=== PATIENT | female | born 1940 | race Caucasian/White ===

== ENCOUNTER → 2016-08-18 | Outpatient (CLI) | payer MEDICARE ==
--- NOTE | 2016-08-18 12:12 | XR ---
EXAMINATION TYPE: XR KUB DATE OF EXAM: 08/18/2016 HISTORY: HX of kidney stones. RT side pain. Comparison: 05/09/2014 Single KUB is submitted for interpretation. Findings: Right renal calculi: None Visualized. Right ureteral calculi: There is an apparent calculus overlying the region of the right renal pelvis/ UPJ measuring 7.4 x 9.3 mm. The examination is limited by overlying bowel content. Left renal calculi: Calculi overlying the lower pole of the left kidney are difficult to exclude giv en overlying bowel content. Left ureteral calculi: None Visualized. Pelvic calcifications: Numerous stable phleboliths are seen. Bowel gas pattern is unremarkable. No free air. No mass effects. IMPRESSION: 1. Right renal pelvis/UPJ calculus. 2. Suspect calculi overlying the lower pole of the left kidney.
== END ==
LOC: RADXRMAIN 11:44
PROVIDERS: ATTEND Urology
DX: N20.0 Calculus of kidney (principal)
CPT/HCPCS: 74000

== ENCOUNTER → 2016-09-01 | Outpatient (CLI) | payer MEDICARE ==
[2016-09-01 11:28] LABS: EKG EKG PERFORMED
[2016-09-01 12:06] LABS: Anion Gap 9 mmol/L; Carbon Dioxide 28 mmol/L (22-30); Chloride 109 mmol/L (98-107); Non-African American GFR(MDRD) >60 (>60 ml/min/1.73 sqM); Potassium 3.8 mmol/L (3.5-5.1); Sodium 146 mmol/L (137-145)
[2016-09-01 12:11] LABS: Basophils % (A) 1 %; CH 30.1; CHCM 33.3; Eosinophils # (A) 0.1 k/uL (0-0.7); Eosinophils % (A) 2 %; HCT 38.8 % (34.0-46.0); HGB 13.1 gm/dL (11.4-16.0); Luc # (Auto) 0.16; Luc % (Auto) 3; Lymphocytes # (A) 1.2 k/uL (1.0-4.8); Lymphocytes % (A) 19 %; MCH 30.7 pg (25.0-35.0); MCHC 33.9 g/dL (31.0-37.0); MCV 90.7 fL (80.0-100.0); Monocytes # (A) 0.5 k/uL (0-1.0); Monocytes % (A) 8 %; Neutrophils # (A) 4.1 k/uL (1.3-7.7); Neutrophils % (A) 69 %; RBC 4.27 m/uL (3.80-5.40); RDW 12.9 % (11.5-15.5); WBC 5.9 k/uL (3.8-10.6); WBC (Perox) 6.06
== END | disposition home or self-care (01) ==
LOC: LABWHC1 11:01
PROVIDERS: ATTEND Urology
DX: N20.0 Calculus of kidney (principal)
CPT/HCPCS: 36415; 80051; 82565; 85025; 93005

== ENCOUNTER → 2016-10-06 | Outpatient (CLI) | payer MEDICARE ==
[2016-10-06 11:29] LABS: Basophils % (A) 0 %; CHCM 33.1; Eosinophils # (A) 0.1 k/uL (0-0.7); Eosinophils % (A) 1 %; HCT 41.3 % (34.0-46.0); HDW 2.42; HGB 13.2 gm/dL (11.4-16.0); Luc # (Auto) 0.16; Luc % (Auto) 3; Lymphocytes # (A) 1.5 k/uL (1.0-4.8); Lymphocytes % (A) 23 %; MCHC 31.9 g/dL (31.0-37.0); MCV 94.1 fL (80.0-100.0); Mean Platelet Volume 7.5; Monocytes # (A) 0.4 k/uL (0-1.0); Monocytes % (A) 7 %; Neutrophils # (A) 4.2 k/uL (1.3-7.7); Neutrophils % (A) 66 %; RBC 4.39 m/uL (3.80-5.40); RDW 13.7 % (11.5-15.5); WBC 6.4 k/uL (3.8-10.6); WBC (Perox) 6.63
[2016-10-06 11:37] LABS: Anion Gap 8 mmol/L; Carbon Dioxide 29 mmol/L (22-30); Chloride 105 mmol/L (98-107); Non-African American GFR(MDRD) >60 (>60 ml/min/1.73 sqM); Potassium 4.1 mmol/L (3.5-5.1); Sodium 142 mmol/L (137-145)
== END | disposition home or self-care (01) ==
LOC: LABPAT 10:47
PROVIDERS: ATTEND Urology
DX: N20.0 Calculus of kidney (principal)
CPT/HCPCS: 80051; 82565; 85025

== ENCOUNTER 2016-10-13 10:44 | Day surgery (SDC) | payer MEDICARE ==
[2016-10-07 11:57] VITALS: BMI 20.1
[~2016-10-13 10:44] MED LIST: DEXAMETHASONE SOD PHOSPHATE 10 MG/ML 1 ML VIAL IV ONE; HYDROmorphone 1 MG/ML 1 ML SYRINGE IVP PRN; LACTATED RINGERS 1,000 ML IV SCH; LIDOCAINE 1% 20 ML VIAL (10MG/ML) FOR IV START INTRADERMA PRN; Pre Op ABX Message 1 EACH MISC MISCELLANE ONE; SCOPOLAMINE 1.5MG/72HR PATCH TRANSDERM ONE
--- NOTE | 2016-10-13 10:53 | XR ---
Abdomen HISTORY: Kidney stones Frontal view of the abdomen on 2 images correlated to prior exam 08/18/2016 Calcification in the right paraspinal location is again seen, there is overlying bowel gas. Calcifica tion measures approximately 1 cm x 6 mm. Lung bases are clear. Retained fecal debris present within t he colon. Multiple calcifications again seen within the pelvis. There is a dextroscoliosis. No eviden t pneumoperitoneum. IMPRESSION: Right-sided nephrolithiasis is suspected. Overlying bowel gas may obscure detail. Correla te for fecal stasis.
[2016-10-13 11:57] VITALS: RESP 16; TEMP 98.1
[2016-10-13] MEDS ORDERED: LIDOCAINE 1% 20 ML VIAL (10MG/ML) FOR IV START INTRADERMA ONE (12:09)
[2016-10-13] MEDS ORDERED: MIDAZOLAM 2 MG/2 ML VIAL ONE (13:58)
[2016-10-13] MEDS ORDERED: PROPOFOL 10 MG/ML 20 ML VIAL IV ONE (13:58)
[2016-10-13] MEDS ORDERED: fentaNYL (PF) 50 MCG/ML 2 ML AMP ONE (13:58)
[2016-10-13] MEDS ORDERED: KETAMINE 10 MG/ML 20 ML VIAL ONE (13:58)
[2016-10-13] MEDS ORDERED: LACTATED RINGERS 1,000 ML IV ONE (14:42)
--- NOTE | 2016-10-13 14:49 | P.OP ---
Date of Procedure: 10/13/16 Preoperative Diagnosis: Right renal calculus Postoperative Diagnosis: Right renal calculus Procedure(s) Performed: Extracorporal shockwave lithotripsy Implants: Anesthesia: MAC Condition: stable Disposition: PACU Indications for Procedure: The patient is a 76 year old female with a history of intermittent right flank pain. She has a 7x9 mm calculus in the lower pole of the right kidney. ESWL is planned for treatment. Operative Findings: Description of Procedure: The patient was taken to the operating suite where intravenous sedation was given. Patient was placed in the supine position on the fluoroscopy table. The calculus in the lower pole of the right kidney was localized using biplanar fluoroscopy. Lithotripsy was performed using the Dornier compact delta unit. Patient received 2500 shocks at level 5 at a rate of 60 shocks per minute. There appeared to be good fragmentation of the calculus. Anesthesia was reversed and the patient was returned to the recovery room awake and in satisfactory condition.
[2016-10-13 15:37] VITALS: BP 156/71; PULSE 63
== END 2016-10-13 15:57 | disposition home or self-care (01) ==
LOC: ORWHC2ENDO 10:44
PROVIDERS: ATTEND Urology
DX: N20.0 Calculus of kidney (principal); I48.91 Unspecified atrial fibrillation; I49.9 Cardiac arrhythmia, unspecified; I25.10 Atherosclerotic heart disease of native coronary artery without angina pectoris; I10 Essential (primary) hypertension; M35.3 Polymyalgia rheumatica; Z79.01 Long term (current) use of anticoagulants; Z79.899 Other long term (current) drug therapy; Z88.8 Allergy status to other drugs, medicaments and biological substances
CPT/HCPCS: 74000; 50590; J2250; J3010; J2704

== ENCOUNTER → 2016-10-24 | Outpatient (CLI) | payer MEDICARE ==
--- NOTE | 2016-10-24 12:43 | XR ---
EXAMINATION TYPE: XR KUB DATE OF EXAM: 10/24/2016 COMPARISON: 10/13/2016 INDICATION: Follow-up right side lithotripsy stones TECHNIQUE: Single view abdomen FINDINGS: There is a normal bowel gas pattern. Psoas margins are normal. No organomegaly is present. There is a 2 mm calcification over the superior pole right kidney. Previous larger calcifications at the right renal inferior pole are less well visualized over the iliac wing. Calcification is indistin ct but building in volume at the right distal ureteral region IMPRESSION: 1. Calcification at the inferior poler right kidney is less well visualized than previous. There may be some increasing calcification at the distal right ureteral region. Correlate with the patient's sy mptoms
== END ==
LOC: RADXRMAIN 11:41
PROVIDERS: ATTEND Urology
DX: N28.89 Other specified disorders of kidney and ureter (principal)
CPT/HCPCS: 74000

== ENCOUNTER → 2016-11-07 | Outpatient (CLI) | payer MEDICARE ==
--- NOTE | 2016-11-07 12:40 | XR ---
EXAMINATION TYPE: XR KUB DATE OF EXAM: 11/07/2016 COMPARISON: 10/24/2016 INDICATION: Ureter calculus TECHNIQUE: Single view abdomen FINDINGS: There is a normal bowel gas pattern. Psoas margins are normal. No organomegaly is present. Normal colonic bowel gas is present. Fecal debris is within the colon. Phleboliths are within the pel vis. Faint calcification in the right hemipelvis is present at the location of the previous larger calcifi cation inferior and mid right renal calcifications are not identified but may be obscured by overlyin g fecal debris on the current exam. IMPRESSION: 1. Smaller calcification in the distal right hemipelvis may represent some fragmentation of stone. 2. Previous right renal stone is not identified. 3. Mild fecal retention
== END | disposition home or self-care (01) ==
LOC: RADXRMAIN 11:45
PROVIDERS: ATTEND Physician Assistant
DX: N28.89 Other specified disorders of kidney and ureter (principal)
CPT/HCPCS: 74000

== ENCOUNTER → 2017-01-22 | Outpatient (CLI) | payer MEDICARE ==
--- NOTE | 2017-01-22 10:15 | US ---
EXAMINATION TYPE: US thyroid st tissue head/neck DATE OF EXAM: 01/22/2017 COMPARISON: NONE CLINICAL HISTORY: 76-year-old female E04.1 THYROID NODULE. TECHNIQUE: Multiple sonographic images of the direct gland are obtained. FINDINGS: GLAND SIZE: Right Lobe: 4.0 x 1.6 x 1.0 cm Overall Parenchyma: heterogenous Left Lobe: 4.1 x 1.5 x 1.6 cm Overall Parenchyma: heterogeneous Isthmus Thickness: 0.3 cm NODULES No prior RIGHT: # of nodules measured on right: 2 1. 0.7 X 0.3 x 0.7 cm isoechoic mixed nodule at the upper pole with well-defined margins. This nodu le is taller than wide and shows intranodular vascularity. 2. 0.7 X 0.5 x 0.6 cm cyst at the lower pole with well-defined margins. This nodule is wider than t all and shows no intranodular vascularity. LEFT: # of nodules measured on left: 2 1. 0.8 x 0.6 x 0.6 cm isoechoic mixed nodule at the lower pole with well-defined margins. This nodu le is wider than tall and shows intranodular vascularity. 2. 2.1 X 1.3 x 1.4 cm isoechoic mixed nodule at the mid pole with well-defined margins . This nodul e is wider than tall and shows intranodular vascularity. ISTHMUS: # of nodules measured in the isthmus: 0 Bilateral neck scanned, no evidence of lymphadenopathy. IMPRESSION: 1. Four thyroid nodules, 2 on each side. 2. The dominant nodule on the left measures 2.1 cm and is mixed solid and cystic. FNA can be consider ed. 3. The remaining 3 nodules are subcentimeter.
== END | disposition home or self-care (01) ==
LOC: RADUSWWP 08:49
PROVIDERS: ATTEND Family Medicine
DX: E04.2 Nontoxic multinodular goiter (principal)
CPT/HCPCS: 76536

== ENCOUNTER → 2017-02-20 | Outpatient (CLI) | payer MEDICARE ==
--- NOTE | 2017-02-20 12:13 | CT ---
EXAMINATION TYPE: CT ankle LT wo con DATE OF EXAM: 02/20/2017 COMPARISON: 02/14/2017 HISTORY: Pain Lt ankle and joints of foot. Known comminuted and minimally displaced medial malleolus fracture and distal fibular fracture. Possible calcaneal fracture. CT DLP: 478.9 mGycm Automated exposure control for dose reduction was used. FINDINGS: There is redemonstration of an obliquely oriented minimally displaced posterior malleolus fracture th at is comminuted. A 3 mm osseous fragment is seen intra-articularly on sagittal bone algorithm image 22. The fracture fragment is displaced 3 mm cranially and 2 mm posteriorly. There is dislocation of the tibial talar joint with medial displacement of the tibia approximately 1. 3 cm. And obliquely oriented fracture of the distal fibula extends over comminuted fracture of the me dial malleolus is also redemonstrated with minimal lateral displacement of 4 mm (towards ankle joint) . No fracture of the calcaneus is suggested. Small Achilles and plantar enthesophytes are present. Th ere is diffuse ankle soft tissue swelling and a moderate tibiotalar joint effusion. Soft tissue swell ing extends into the hindfoot and visualized midfoot. The talar dome appears intact as do the tarsal bones. The visualized bases of the metatarsals are als o intact. Although there is limited visualization of the tendons on CT and given the extensive surrounding infl ammatory change there is thickening and likely discontinuity of the tibialis posterior and some mild thickening of the flexor digitorum longus as well as of the peroneus brevis and longus that may relat e to partial tear and/or tendinosis. Extensor tendons appear grossly unremarkable in thickness and at tenuation. IMPRESSION: 1. TRIMALLEOLAR COMMINUTED INTRA-ARTICULAR FRACTURES WITH MEDIAL TIBIOTALAR JOINT DISLOCATION. 3 MM I NTRA-ARTICULAR OSSEOUS FRAGMENT IS SEEN OF THE LATERAL MALLEOLUS. 2. MODERATE TIBIOTALAR JOINT EFFUSION AND EXTENSIVE SOFT TISSUE SWELLING OF THE LEFT ANKLE, HINDFOOT AND MIDFOOT SURROUNDING THE FRACTURE SITES. 3. PROBABLE TEAR OF THE POSTERIOR TIBIALIS AND PARTIAL TEAR AND/OR TENDINOSIS OF THE PERONEUS BREVIS, LONGUS AND FLEXOR DIGITORUM LONGUS.
== END | disposition home or self-care (01) ==
LOC: RADCTMAIN 11:11
PROVIDERS: ATTEND Orthopaedic Surgery
DX: S82.852A Displaced trimalleolar fracture of left lower leg, initial encounter for closed fracture (principal)

== ENCOUNTER 2017-03-04 11:13 | Day surgery (SDC) | payer MEDICARE ==
[~2017-03-04 11:13] MED LIST changes: -HYDROmorphone 1 MG/ML 1 ML SYRINGE IVP PRN; -LIDOCAINE 1% 20 ML VIAL (10MG/ML) FOR IV START INTRADERMA PRN; +ONDANSETRON 4 MG/2 ML VIAL IVP ONE; -Pre Op ABX Message 1 EACH MISC MISCELLANE ONE; -SCOPOLAMINE 1.5MG/72HR PATCH TRANSDERM ONE; +ceFAZolin IN SWFI 2 GM/20 ML SYRINGE IVP ONE
[2017-03-04] MEDS ORDERED: LIDOCAINE 1% 20 ML VIAL (10MG/ML) FOR IV START INTRADERMA ONE (12:09)
[2017-03-04 12:41] LABS: INR 1.1 (<1.2); Prothrombin Time 10.3 sec (9.0-12.0)
[2017-03-04] MEDS ORDERED: fentaNYL (PF) 50 MCG/ML 2 ML AMP ONE (13:36)
[2017-03-04] MEDS ORDERED: MIDAZOLAM 2 MG/2 ML VIAL ONE (13:36)
[2017-03-04] MEDS ORDERED: PROPOFOL 10 MG/ML 20 ML VIAL IV ONE (13:36)
[2017-03-04] MEDS ORDERED: ceFAZolin 1,000 MG in SODIUM CHLORIDE 0.9% 1,000 ML IRRIGATION ONE (14:12)
--- NOTE | 2017-03-04 15:15 | FL ---
Fluoroscopy History: ORIF LT ANKLE 56 SECS FLUORO AND [address] Harrison supervised use of mushtaq for a lt ankle orif 56 secs fluoro and 4 paper images
[2017-03-04] MEDS ORDERED: hydrOXYzine PAMOATE 25 MG CAP PO PRN (15:42)
[2017-03-04] MEDS ORDERED: HYDROcodone/APAP 5-325MG 1 EACH TAB PO PRN ×2 (15:42)
[2017-03-04] MEDS ORDERED: METOCLOPRAMIDE 5 MG/ML 2 ML VIAL IVP PRN (15:42)
[2017-03-04] MEDS ORDERED: HYDROmorphone 2 MG/ML 1 ML SYRINGE IVP PRN ×3 (15:42)
[2017-03-04] MEDS ORDERED: TEMAZEPAM 15 MG CAP PO PRN (15:42)
[2017-03-04] MEDS ORDERED: PROCHLORPERAZINE SUPPOSITORY 25 MG SUPP RECTAL PRN (15:42)
[2017-03-04] MEDS ORDERED: ONDANSETRON 4 MG/2 ML VIAL IVP PRN (15:42)
[2017-03-04] MEDS ORDERED: SENNOSIDES-DOCUSATE SODIUM 1 EACH TAB PO PRN (15:42)
[2017-03-04] MEDS ORDERED: diphenhydrAMINE 25 MG CAP PO PRN (15:42)
[2017-03-04] MEDS ORDERED: ONDANSETRON 4 MG/2 ML VIAL IVP ONE (15:54)
[2017-03-04] MEDS: HYDROmorphone 0.5 MG/0.5 ML SYRINGE IVP PRN ×2 (15:54→16:03)
--- NOTE | 2017-03-04 16:01 | P.OP ---
Date of Procedure: 03/04/17 Preoperative Diagnosis: Closed left trimalleolar ankle fracture Postoperative Diagnosis: Same Procedure(s) Performed: 1. Open reduction and internal fixation of left bimalleolar ankle fracture ( open reduction and internal fixation of medial and lateral malleolus fracture, nonoperative management posterior malleolus fracture) 2. Manual application of joint stress by physician for radiography, left ankle 3. Application of short leg splint by physician Anesthesia: spinal Surgeon: Kyaw Harrison Spray Drier #1: Garret Martinez Estimated Blood Loss (ml): 10 IV fluids (ml): 500 Pathology: none sent Condition: stable Disposition: PACU Indications for Procedure: The patient is a relatively healthy 76-year-old female who sustained a slip and fall resulting in an isolated injury to her left ankle. She was seen in the emergency department, placed in a splint, and sent to our office. She initially saw one of my partners who performed a closed reduction and splinting in the office and then sent her for a computed tomography scan. The patient met with me in the office accompanied by her family. Due to the amount of displacement I recommended surgery. We discussed the potential risks and complications of surgery including but not limited to risk of anesthesia, risk of superficial infection, risk of deep infection, risk of delayed wound healing , risk of superficial wound necrosis, risk of deep wound necrosis, risk of damage to local blood vessels, risk of damage to local nerves resulting in temporary or permanent numbness, risk of fracture malunion, risk of fracture nonunion, risk of postoperative displacement needing additional surgery, risk of hardware failure, risk of symptomatic hardware, risk of broken hardware, risk of chronic pain, risk of chronic swelling, risk of post traumatic arthritis requiring further surgery including an ankle fusion or ankle replacement, risk of DVT, risk of PE, risk of inability to regain preinjury level of function, risk of generalized to satisfaction with surgery, and possibly loss of life or limb. The patient and her family voiced her understanding of this and that there are other potential complications not listed. They provided their verbal and written consent to go forward with surgery. Description of Procedure: Stentiford and prepped with holding and the correct left ankle was marked with my initials. I reviewed the consent form with the patient and her family. All their questions were answered. The patient was then brought back to the operating room by anesthesia. A spinal anesthetic was administered while on the gurney. She was then transferred to the OR table. Preoperative antibiotics were administered. A tourniquet was applied to the proximal aspect of the left thigh. The right leg was secured to the table with foam and tape. A bump was placed under her left buttock internally rotating the leg to neutral. A ramp was placed under her left leg. The left leg was then prepped and draped in the standard sterile fashion. Prior to starting surgery timeout was performed identifying the correct patient, operative extremity, and procedure. The patient's leg was then elevated exsanguinated with an Esmarch bandage and the tourniquet was inflated to 250 mmHg. I began by outlining a longitudinal incision over the lateral aspect of the leg from the tip of the distal fibula to the mid calf. Skin incision was made with a 15 blade scalpel. Dissection was carried down carefully through subcutaneous tissue with tenotomy scissors. The superficial peroneal nerve was identified, released, and carefully retracted. The fascia over the peroneal musculature and periosteum over the fibula was incised longitudinally in line with the skin incision. The fibula fracture was identified and exposed. The fracture is a long oblique fracture which was completely exposed, and early hematoma and callus was sharply debrided. Once the fracture was adequately debrided a reduction was performed. The fibula fracture was keyed into place and held with 2 mmgot-pr-mvwon reduction clamps. I then proceeded to place 2 lag screws across the fracture fragments. Two 2.4 mm screws were placed. A 2.4 mm drill bit was used to create a gliding hole and a 1.7 drill bit was used to create threaded holes. Both screws generated excellent compression across the fracture. The [id number] reduction clamps were removed and the fracture reduction held. I then laced a 12 hole one third tubular plate over the lateral aspect of the distal fibula. A 3.5 mm locking screw was placed just proximal to the fracture bringing the plate down to the bone. An additional two 3.5 mm was replaced proximal to the fracture. I then placed three 4.0 cancellus screws in the distal fragment. The position of the plate and reduction was verified with fluoroscopy. The fibula fracture appeared to be out to length and anatomically reduced. Attention was then turned to the medial malleolus. A longitudinal incision was made centered over the medial malleolus. Skin incision was made with a 15 blade scalpel and dissection was carried down carefully to the subtendinous tissue with tenotomy scissors. The medial malleolus fracture was identified and exposed. The fracture was exposed to the level of the ankle joint. There are several areas of comminution. A 2.0 mm drill bit was used to create a unicortical hole just proximal to the fracture. 1 coby of a [id number]-je-[id number] reduction clamp was placed in this hole and the other coby was placed on the tip of the largest medial malleolus fragment. The reduction clamp was tightened. The shoulder of the ankle joint appeared to be reduced. On fluoroscopy the largest fragment appeared to be reduced. I then placed 2 fully threaded, solid 2.7 mm screws measuring 60 mm. Both screws had good purchase in the medial malleolus fragment. Fluoroscopy was once again used to verify reduction. There is still a small amount of widening of the medial clear space so I elected to place a syndesmotic screw. A large reduction clamp was used across the syndesmosis. 1 coby was placed in the lateral plate screw and the other coby was placed over the medial malleolus. The clamp was gently reduced. Fluoroscopy was used to verify that the medial clear space was closed down. I then placed a fully threaded 3.5 mm screw measuring 50 mm through the plate and all 4 cortices. Final fluoroscopic images were then taken. The fibula fracture appeared to be out to length and all of the hardware appeared to be in acceptable position. The medial clear space was reduced. On the lateral view there was minimal displacement of the posterior malleolus and the talus was centered under the tibial plafond. Both wounds were then copiously irrigated. The deep fascia of the lateral wound was closed with a running 0 Vicryl stitch. The deep subcu was reapproximated using 2-0 Vicryl. The skin was closed using 3-0 nylon Allgower modification of the Donati stitch. The medial wound was closed in layers with 0 Vicryl for the periosteum, 2-0 Vicryl for the subcu and 3-0 nylon Allgower modification of the Donati stitch for the skin. The tourniquet was let down for total tourniquet time 74 minutes. I verified that all instrument, sponge, and sharp counts were correct. A sterile dressing consisting of Brown Megan stretchy Steri-Strips, Betadine soaked Adaptic, and 4 x 4 was applied. The drapes were taken down and a well-padded bulky Harris splint with the ankle in neutral was placed. The patient was then awoken from her sedation, transferred from the OR table to the [facility] and brought to PACU having to the procedure well. Garret Drew PA-C was required a skilled education assistant for patient positioning, surgical exposure, reduction of fracture, placement of hardware, closure of wounds, and application of splint.
[2017-03-04] MEDS ORDERED: NALBUPHINE 10 MG/ML AMPUL IV PRN (16:13)
[2017-03-04] MEDS ORDERED: NALOXONE 0.4 MG/ML 1 ML VIAL IV PRN (16:13)
[2017-03-04] MEDS ORDERED: MORPHINE SULFATE 2 MG/ML SYRINGE IVP PRN (16:13)
[2017-03-04] MEDS ORDERED: diphenhydrAMINE 50 MG/ML 1 ML VIAL IVP ONE (16:14)
[2017-03-04] MEDS ORDERED: WARFARIN 5 MG TAB PO ONE (18:00)
[2017-03-04 18:35] LABS: Basophils % (A) 0 %; Eosinophils % (A) 0 %; HCT 38.4 % (34.0-46.0); HGB 12.3 gm/dL (11.4-16.0); Lymphocytes # (A) 0.5 k/uL (1.0-4.8); Lymphocytes % (A) 7 %; MCH 29.2 pg (25.0-35.0); MCHC 32.1 g/dL (31.0-37.0); MCV 90.9 fL (80.0-100.0); Mean Platelet Volume 7.8; Monocytes # (A) 0.1 k/uL (0-1.0); Monocytes % (A) 2 %; Neutrophils # (A) 6.9 k/uL (1.3-7.7); Neutrophils % (A) 91 %; Platelet Count 340 k/uL (150-450); RBC 4.22 m/uL (3.80-5.40); RDW 13.9 % (11.5-15.5); WBC 7.6 k/uL (3.8-10.6)
[2017-03-04 20:04] VITALS: RESP 16
[2017-03-04 23:53] VITALS: BMI 20.1
[2017-03-05] MEDS: ceFAZolin IN SWFI 2 GM/20 ML SYRINGE IVP SCH ×2 (00:22→05:17)
[2017-03-05] MEDS: LACTATED RINGERS 1,000 ML IV SCH ×2 (02:42→05:17)
[2017-03-05 05:38] VITALS: BP 125/61; PULSE 79; TEMP 98.5
[2017-03-05 07:28] LABS: INR 1.1 (<1.2); Prothrombin Time 10.9 sec (9.0-12.0)
--- NOTE | 2017-03-05 08:19 | P.PN ---
Progress Note - Text Date: 03/05/2017 Time: 07 The patient is status post, ORIF trimalleolar fracture left ankle Vital signs stable VAS:[0-10] Patient has no complaints of pain. The patient incurred some minimal itching yesterday, this itching is now subsiding. Pain meds to be managed by service.
--- NOTE | 2017-03-05 09:25 | P.DS ---
Providers Expected date of discharge: 03/05/17 Attending physician: Kyaw Harrison Consults: 03/04/17 15:42 Consult Physician Routine Consulting Provider: Devorah Kumar Consult Reason/Comments: post op medical management Do you want consulting provider notified?: Yes Primary care physician: Sharyn Damon - Discharge Diagnosis(es) (1) Tibia/fibula fracture Patient was admitted to the OR on 03/04/17 to undergo ORIF of left ankle fracture. She had failed conservative measures as an outpatient and desired to proceed with elective surgery after given informed consent. She underwent the above procedure which she tolerated well without complication. Postoperative hospital course has remained without complication. On day of discharge she is afebrile, vital signs stable, labs within acceptable ranges, tolerating by mouth meds and diet, voiding without difficulty, positive flatus, denies abdominal pain or calf pain, pain is controlled on oral pain medication and has no new complaints. Wound is benign, neurovascular status is intact, calf is soft and nontender, abdomen soft and nontender. Review of systems is negative for numbness, tingling, fever, chills, chest pain, shortness breath, nausea, vomiting, dizziness, headaches, slurred speech or other. Current Visit: No Status: Acute Priority: Medium Procedures: ORIF left ANkle Fracture Patient Condition at Discharge: Good Plan - Discharge Summary Discharge Rx Participant: No New Discharge Prescriptions: New Docusate [Colace] 100 mg PO BID #60 capsule HYDROcodone/APAP 7.5-325MG [[place] Horse 7.5-325] 1 - 2 tab PO Q6HR PRN #60 tab PRN Reason: Pain No Action Warfarin [Coumadin] 5 mg PO SUMOTUWETHSA Flecainide Acetate [Tambocor] 100 mg PO Q12H Vitamin B Complex 1 cap PO DAILY Sanford-3 Fatty Acids [Sanford-3] 1,000 mg PO DAILY Multivitamin [Multivitamins Adult Gummies] 1 tab PO DAILY Diltiazem HCl [Diltiazem 24Hr ER] 180 mg PO QAM Warfarin [Coumadin] 2.5 mg PO FR Hydrocodone/Acetaminophen [[place] Horse 5-325] 1 tab PO Q6HR PRN #24 tab PRN Reason: Pain Ondansetron [Zofran ODT] 4 mg PO Q8HR PRN #15 tab PRN Reason: Nausea Discharge Medication List Flecainide Acetate [Tambocor] 100 mg PO Q12H 09/03/16 [History] Multivitamin [Multivitamins Adult Gummies] 1 tab PO DAILY 09/03/16 [History] Sanford-3 Fatty Acids [Sanford-3] 1,000 mg PO DAILY 09/03/16 [History] Vitamin B Complex 1 cap PO DAILY 09/03/16 [History] Warfarin [Coumadin] 5 mg PO SUMOTUWETHSA 09/03/16 [History] Diltiazem HCl [Diltiazem 24Hr ER] 180 mg PO QAM 10/07/16 [History] Hydrocodone/Acetaminophen [Wild Horse 5-325] 1 tab PO Q6HR PRN #24 tab 02/14/17 [Rx] Ondansetron [Zofran ODT] 4 mg PO Q8HR PRN #15 tab 02/14/17 [Rx] Warfarin [Coumadin] 2.5 mg PO FR 02/14/17 [History] Docusate [Colace] 100 mg PO BID #60 capsule 03/05/17 [Rx] HYDROcodone/APAP 7.5-325MG [Wild Horse 7.5-325] 1 - 2 tab PO Q6HR PRN #60 tab [Rx] Follow up Appointment(s)/Referral(s): Kyaw Harrison MD [Medical Doctor] - 2 Weeks Activity/Diet/Wound Care/Special Instructions: Take meds as directed F/U with Dr. Harrison in office, [phone] Non weightbearing elevate leg maintain splint, keep clean and dry Discharge Disposition: HOME SELF-CARE
--- NOTE | 2017-03-05 11:54 | P.CONS ---
History of Present Illness - Reason for Consult Consult date: 03/05/17 Medical management - Chief Complaint Left ankle fracture - History of Present Illness This is a 76-year-old female with past medical history noted below significant for recent trimalleolar ankle fracture of the left ankle who presented to the hospital for elective ORIF fixation. Patient is postoperative day #1. She is doing fairly well. She does not have any specific concerns or complaints. I was asked to see her for medical management. She is known to have chronic atrial fibrillation and her heart rate is well controlled. It is planned for her to be discharged home today. Review of Systems Review of system: 14 points review of systems were obtained and were negative except to what were mentioned in the HPI. Past Medical History Past Medical History: Atrial Fibrillation History of Any Multi-Drug Resistant Organisms: None Reported Past Surgical History: Appendectomy, Back Surgery, Hysterectomy, Tonsillectomy Additional Past Surgical History / Comment(s): CERVICAL SURGERY. Trigger finger , bowel repair. LITHOTRIPSY. RIGHT EYE CATARACT REMOVAL. Past Anesthesia/Blood Transfusion Reactions: Motion Sickness Past Psychological History: No Psychological Hx Reported Smoking Status: Never smoker Past Alcohol Use History: Rare Past Drug Use History: None Reported - Past Family History Father Family Medical History: Cancer Medications and Allergies Home Medications Medication Instructions Recorded Confirmed Type Flecainide Acetate [Tambocor] 100 mg PO Q12H 09/03/16 03/04/17 History Multivitamin [Multivitamins Adult 1 tab PO DAILY 09/03/16 02/27/17 History Gummies] Whatley-3 Fatty Acids [Whatley-3] 1,000 mg PO DAILY 09/03/16 02/27/17 History Vitamin B Complex 1 cap PO DAILY 09/03/16 02/27/17 History Warfarin [Coumadin] 5 mg PO SUMOTUWETHSA 09/03/16 03/04/17 History Diltiazem HCl [Diltiazem 24Hr ER] 180 mg PO QAM 10/07/16 02/27/17 History Hydrocodone/Acetaminophen [[place] 1 tab PO Q6HR PRN #24 tab 02/14/17 03/04/17 Rx 5-325] Ondansetron [Zofran ODT] 4 mg PO Q8HR PRN #15 tab 02/14/17 03/04/17 Rx Warfarin [Coumadin] 2.5 mg PO FR 02/14/17 03/04/17 History Docusate [Colace] 100 mg PO BID #60 capsule 03/05/17 Rx HYDROcodone/APAP 7.5-325MG [[place] 1 - 2 tab PO Q6HR PRN #60 tab 03/05/17 Rx 7.5-325] Allergies Allergy/AdvReac Type Severity Reaction Status Date / Time brompheniramine AdvReac Extreme Verified 02/27/17 08:52 [From Dimetapp sleepiness (brompheniramine-PPA)] phenylpropanolamine AdvReac Extreme Verified 02/27/17 08:52 [From Dimetapp sleepiness (brompheniramine-PPA)] Physical Exam Vitals: Vital Signs Temp Pulse Resp BP Pulse Ox 03/05/17 07:49 94 L 03/05/17 07:08 16 03/05/17 05:37 98.5 F 79 16 125/61 94 L 03/05/17 02:20 98.0 F 81 16 116/60 94 L 03/04/17 19:15 66 16 149/81 03/04/17 19:00 69 16 148/93 03/04/17 18:45 72 16 136/80 03/04/17 18:30 69 16 140/80 03/04/17 18:15 72 16 145/83 03/04/17 18:00 69 16 147/96 03/04/17 17:45 61 16 134/87 03/04/17 17:30 76 16 146/81 03/04/17 17:15 97.9 F 70 16 166/78 98 03/04/17 16:30 83 12 145/65 98 03/04/17 16:15 85 10 L 139/67 98 03/04/17 16:00 82 16 139/65 96 03/04/17 15:43 97.6 F 83 18 133/63 95 03/04/17 12:03 98.8 F 76 16 122/61 97 Intake and Output 03/04/17 03/05/17 03/05/17 22:59 06:59 14:59 Intake Total 300 237 Output Total 10 Balance 290 237 Intake: IV 300 Oral 237 Output: Estimated Blood Loss 10 Other: Voiding Method Bedside Commode # Voids 1 1 1 Weight 56.699 kg General: The patient is awake and alert, in no distress Eye: there is normal conjunctiva bilaterally. Neck: The neck is supple, there is no JVD. Cardiovascular: Normal S1-S2, no S3-S4, no murmurs. Respiratory: Lungs clear to auscultation bilaterally Gastrointestinal: Abdomen is soft, nontender Musculoskeletal: There is no pedal edema on the right Left foot/ankle wrapped in a splint up to the midshin. Neurological:. Speech is normal. Skin: Skin is warm and dry Results CBC & Chem 7: 03/04/17 17:27 Labs: Abnormal Lab Results - Last 24 Hours (Table) 03/04/17 Range/Units 17:27 Lymphocytes # 0.5 L (1.0-4.8) k/uL Assessment and Plan Assessment: 1. Postoperative day #1 status post ORIF of left trimalleolar ankle fracture: Continue postoperative care per orthopedic direction. 2. Chronic atrial fibrillation: Heart rate well controlled. On anticoagulation with Coumadin. 3. Chronic arthritis Today, I reviewed her medication list and lab work results. Continue current regimen. Patient is medically cleared for discharge home.
[2017-03-05] MEDS ORDERED: WARFARIN 7.5 MG TAB PO ONE (18:00)
== END 2017-03-05 12:20 | disposition home or self-care (01) ==
LOC: OR 11:13 → EDSTATUS 12:50 → 3SUR 15:43 → OR 03-05 12:20
PROVIDERS: ATTEND Orthopaedic Surgery
DX: S82.852A Displaced trimalleolar fracture of left lower leg, initial encounter for closed fracture (principal); W00.0XXA Fall on same level due to ice and snow, initial encounter; M79.652 Pain in left thigh; W18.30XA Fall on same level, unspecified, initial encounter; Y93.9 Activity, unspecified; Y92.002 Bathroom of unspecified non-institutional (private) residence as the place of occurrence of the external cause; I48.2 Chronic atrial fibrillation; Z79.01 Long term (current) use of anticoagulants; M19.90 Unspecified osteoarthritis, unspecified site; Z79.899 Other long term (current) drug therapy; Z88.8 Allergy status to other drugs, medicaments and biological substances
CPT/HCPCS: 27814; 94760; 97161; 85025; 85610 ×2; 73600; C1713; J2250; J1200; J1100; J0690 ×3; J2405; J3010; J2270; J2704; J1170

== ENCOUNTER → 2017-09-18 | Outpatient (CLI) | payer MEDICARE ==
--- NOTE | 2017-09-18 10:47 | US ---
EXAMINATION TYPE: US kidneys/renal and bladder DATE OF EXAM: 09/18/2017 COMPARISON: multiple KUB's CLINICAL HISTORY: N39.41 URGE INCONTINENCE. EXAM MEASUREMENTS: Right Kidney: 9.8 x 4.3 x 4.5 cm Left Kidney: 11.1 x 4.9 x 5.2 cm Post Void Residual Volume: 26.7 mL Right Kidney: small echogenic focus midpole measures 0.5 x 0.5 cm, does not shadow but does show twin kle artifact. Left Kidney: No hydronephrosis or masses seen Bladder: wnl Bilateral Jets seen: Yes Normal Post Void Residual: yes There is no evidence for hydronephrosis at this point in time. No nephrolithiasis is seen. No justin s are identified. The urinary bladder is anechoic. Bilateral ureteral jets are seen. IMPRESSION: 1. Possible punctate 5 mm nonobstructing right renal calculus versus prominent renal sinus fat. No hy dronephrosis within either kidney. 2. No abnormal post void residual within the urinary bladder.
== END | disposition home or self-care (01) ==
LOC: RADUSWWP 10:05
PROVIDERS: ATTEND Family Medicine
DX: N39.41 Urge incontinence (principal)
CPT/HCPCS: 76770

== ENCOUNTER → 2018-07-02 | Outpatient (CLI) | payer MEDICARE ==
--- NOTE | 2018-07-02 12:52 | US ---
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 GLAND SIZE: Right Lobe: 5.2 x 1.6 x 1.4 cm Overall Parenchyma: heterogenous Left Lobe: 4.6 x 2.0 x 1.6 cm Overall Parenchyma: heterogeneous Isthmus Thickness: 0.3 cm NODULES RIGHT: # of nodules measured on right: 2 1. 0.9 X 0.4 x 0.9 cm hypoechoic solid nodule at the upper pole with well-defined margins; . This nodule is wider than tall and shows intranodular vascularity. Prior size: 0.7 x 0.3 x 0.7 cm 2. 0.7 X 0.5 x 0.6 cm hypoechoic cystic nodule at the lower pole with well-defined margins; . This nodule is wider than tall and shows no intranodular vascularity. Prior size: 0.7 x 0.5 x 0.6 cm LEFT: # of nodules measured on left: 1. 1.1 X 0.9 x 0.9 cm hypoechoic solid nodule at the lower pole with well-defined margins; . This nodule is wider than tall and shows intranodular vascularity. Prior size: 0.8 x 0.6 x 0.6 cm 2. 2.4 X 1.4 x 1.4 cm hypoechoic mixed nodule at the mid pole with well-defined margins; . This nod ule is wider than tall and shows intranodular vascularity. Prior size: 2.1 x 1.3 x 1.4 cm ISTHMUS: # of nodules measured in the isthmus: 0 Bilateral neck scanned, no evidence of lymphadenopathy. Nodules on the left side have grown together and are difficult to separate, could be measured all as one nodule. IMPRESSION: Nonspecific glandular heterogeneity and nodularity unchanged from prior study.
[2018-07-02 14:02] LABS: T4, Free (Free Thyroxine) 0.9 ng/dL (0.78-2.19)
== END | disposition home or self-care (01) ==
LOC: RADUSWWP 12:03
PROVIDERS: ATTEND Internal Medicine Endocrinology, Diabetes & Metabolism
DX: E04.2 Nontoxic multinodular goiter (principal)
CPT/HCPCS: 36415; 76536; 84439; 84443

== ENCOUNTER → 2018-09-07 | Outpatient (CLI) | payer MEDICARE ==
--- NOTE | 2018-09-09 11:56 | MM ---
Reason for exam: screening (asymptomatic). Last mammogram was performed 3 years and 4 months ago. History: Patient is postmenopausal and history of other cancer. Physical Findings: A clinical breast exam by your physician is recommended on an annual basis and results should be correlated with mammographic findings. MG 3D Screening Mammo W/Cad Bilateral CC and MLO view(s) were taken. Prior study comparison: May 16, 2015, mammogram. The breast tissue is heterogeneously dense. This may lower the sensitivity of mammography. No significant changes when compared with prior studies. ASSESSMENT: Benign, BI-RAD 2 RECOMMENDATION: Routine screening mammogram of both breasts in 1 year.
== END | disposition home or self-care (01) ==
LOC: RADMAMWWP 12:38
PROVIDERS: ATTEND Family Medicine
DX: Z12.31 Encounter for screening mammogram for malignant neoplasm of breast (principal)
CPT/HCPCS: 77063; 77067

== ENCOUNTER 2019-04-09 11:30 | Emergency (ER) | payer MEDICARE ==
[2019-04-09 11:40] VITALS: RESP 18; TEMP 98.4
--- NOTE | 2019-04-09 11:53 | ED ---
General Adult HPI - General Chief complaint: Fall Stated complaint: Fall Time Seen by Provider: 04/09/19 11:39 Source: EMS Mode of arrival: EMS Limitations: no limitations - History of Present Illness Initial comments: Dictation was produced using [employer] dictation software. please excuse any grammatical, word or spelling errors. Chief Complaint: 78-year-old female presents after fall. History of Present Illness: 70-year-old female presents after fall. Patient states she was leaving the grocery store when she tripped and fell at that her Tanner foot on a small elevation in the sidewalk. Patient states she fell forward striking her face and then in her right elbow. Patient was ambulatory on scene. She has some mild facial pain and some mild right elbow pain. Patient takes Coumadin for atrial fibrillation. Denies any neuro deficits. The ROS documented in this emergency department record has been reviewed and confirmed by me. Those systems with pertinent positive or negative responses have been documented in the HPI. All other systems are other negative and/or noncontributory. PHYSICAL EXAM: General Impression: Alert and oriented x3, not in acute distress HEENT: Superficial abrasion over the bridge of the nose, no septal hematoma, extra-ocular movements intact, pupils equal and reactive to light bilaterally, mucous membranes moist. Cardiovascular: Heart regular rate and rhythm, S1&S2 audible, no murmurs, rubs or gallops Chest: Lungs clear to auscultation bilaterally, no rhonchi, no wheeze, no rales Abdomen: Bowel sounds present, abdomen soft, non-tender, non-distended, no organomegaly Musculoskeletal: Pulses present and equal in all extremities, no peripheral edema Very mild abrasion to the posterior elbow Motor: no focal deficits noted Neurological: CN II-XII grossly intact, no focal motor or sensory deficits noted Skin: Intact with no visualized rashes Psych: Normal affect and mood ED course: 78-year-old female presents after mechanical fall. She is on Coumadin. Vital signs upon arrival are within acceptable limits.Laboratory evaluation obtained. Leukocytosis 15.6 likely secondary to stress. Coag panel shows INR of 2.3, metabolic panel is unremarkable. Chest x-ray pelvis x-ray notable x-ray shows no acute osseous injuries. Computed tomography scan of the head and C-spine and facial CT unremarkable. Patient observed in emergency department found him in stable medical condition. Patient is no complaint at this time. Patient to be discharged. She is told to contact emergency department if she has any worsening symptoms including worsening elbow pain, headache, nausea or vomiting. Otherwise patient is advised to follow-up with primary care physician. Patient understandable agreeable to disposition plan. Tetanus was updated. EKG interpretation: Ventricular rate 67, normal sinus rhythm,. Interval 200, QRS 110, QTc 450. No ME prolongation, no QTC prolongation, no ST or T-wave changes noted. s. Overall, this EKG is unremarkable - Related Data Home Medications Medication Instructions Recorded Confirmed Flecainide Acetate [Tambocor] 100 mg PO Q12H 09/03/16 03/04/17 Multivitamin [Multivitamins Adult 1 tab PO DAILY 09/03/16 02/27/17 Gummies] [place]-3 Fatty Acids [[place]-3] 1,000 mg PO DAILY 09/03/16 02/27/17 Vitamin B Complex 1 cap PO DAILY 09/03/16 02/27/17 Warfarin [Coumadin] 5 mg PO SUMOTUWETHSA 09/03/16 03/04/17 Diltiazem HCl [Diltiazem HCl 24Hr 180 mg PO QAM 10/07/16 02/27/17 ER] Warfarin [Coumadin] 2.5 mg PO FR 02/14/17 03/04/17 Previous Rx's Medication Instructions Recorded Hydrocodone/Acetaminophen [[place] 1 tab PO Q6HR PRN #24 tab 02/14/17 5-325] Ondansetron [Zofran ODT] 4 mg PO Q8HR PRN #15 tab 02/14/17 Docusate [Colace] 100 mg PO BID #60 capsule 03/05/17 HYDROcodone/APAP 7.5-325MG [[place] 1 - 2 tab PO Q6HR PRN #60 tab 03/05/17 7.5-325] Allergies Allergy/AdvReac Type Severity Reaction Status Date / Time brompheniramine AdvReac Extreme Verified 04/09/19 11:37 [From Dimetapp sleepiness (brompheniramine-PPA)] phenylpropanolamine AdvReac Extreme Verified 04/09/19 11:37 [From Dimetapp sleepiness (brompheniramine-PPA)] Review of Systems ROS Statement: Those systems with pertinent positive or pertinent negative responses have been documented in the HPI. ROS Other: All systems not noted in ROS Statement are negative. Past Medical History Past Medical History: Atrial Fibrillation History of Any Multi-Drug Resistant Organisms: None Reported Past Surgical History: Appendectomy, Back Surgery, Hysterectomy, Orthopedic Surgery, Tonsillectomy Additional Past Surgical History / Comment(s): CERVICAL SURGERY. Trigger finger, bowel repair. LITHOTRIPSY. RIGHT EYE CATARACT REMOVAL. Past Anesthesia/Blood Transfusion Reactions: Motion Sickness Past Psychological History: No Psychological Hx Reported Smoking Status: Never smoker Past Alcohol Use History: Rare Past Drug Use History: None Reported - Past Family History Father Family Medical History: Cancer General Exam Limitations: no limitations Course Vital Signs 04/09/19 11:37 Temperature 98.4 F Pulse Rate 71 Respiratory 18 Rate Blood Pressure 148/84 O2 Sat by Pulse 98 Oximetry Medical Decision Making - Lab Data Result diagrams: 04/09/19 12:00 04/09/19 12:00 Lab Results 04/09/19 04/09/19 04/09/19 Range/Units 12:00 12:00 12:00 WBC 15.6 H (3.8-10.6) k/uL RBC 4.36 (3.80-5.40) m/uL Hgb 12.4 (11.4-16.0) gm/dL Hct 38.8 (34.0-46.0) % MCV 89.2 (80.0-100.0) fL MCH 28.5 (25.0-35.0) pg MCHC 32.0 (31.0-37.0) g/dL RDW 14.4 (11.5-15.5) % Plt Count 250 (150-450) k/uL Neutrophils % 91 % Lymphocytes % 4 % Monocytes % 4 % Eosinophils % 0 % Basophils % 0 % Neutrophils # 14.2 H (1.3-7.7) k/uL Lymphocytes # 0.6 L (1.0-4.8) k/uL Monocytes # 0.6 (0-1.0) k/uL Eosinophils # 0.1 (0-0.7) k/uL Basophils # 0.0 (0-0.2) k/uL PT 22.1 H (9.0-12.0) sec INR 2.3 H (<1.2) APTT 25.4 (22.0-30.0) sec Sodium 136 L (137-145) mmol/L Potassium 4.0 (3.5-5.1) mmol/L Chloride 101 (98-107) mmol/L Carbon Dioxide 28 (22-30) mmol/L Anion Gap 7 mmol/L BUN 28 H (7-17) mg/dL Creatinine 0.75 (0.52-1.04) mg/dL Est GFR (CKD-EPI)AfAm 88 (>60 ml/min/1.73 sqM) Est GFR (CKD-EPI)NonAf 77 (>60 ml/min/1.73 sqM) Glucose 153 H (74-99) mg/dL Calcium 9.3 (8.4-10.2) mg/dL Disposition Clinical Impression: Fall, Head contusion, Elbow contusion Disposition: HOME SELF-CARE Condition: Good Instructions (If sedation given, give patient instructions): Fall Prevention for Older Adults (ED) Is patient prescribed a controlled substance at d/c from ED?: No Referrals: Sharyn Damon MD [Primary Care Provider] - 1-2 days Time of Disposition: 13:13
[2019-04-09 12:13] LABS: Basophils % (A) 0 %; Eosinophils # (A) 0.1 k/uL (0-0.7); Eosinophils % (A) 0 %; HCT 38.8 % (34.0-46.0); HGB 12.4 gm/dL (11.4-16.0); Lymphocytes # (A) 0.6 k/uL (1.0-4.8); Lymphocytes % (A) 4 %; MCH 28.5 pg (25.0-35.0); MCV 89.2 fL (80.0-100.0); Mean Platelet Volume 7.1; Monocytes # (A) 0.6 k/uL (0-1.0); Monocytes % (A) 4 %; Neutrophils # (A) 14.2 k/uL (1.3-7.7); Neutrophils % (A) 91 %; Platelet Count 250 k/uL (150-450); RBC 4.36 m/uL (3.80-5.40); RDW 14.4 % (11.5-15.5); WBC 15.6 k/uL (3.8-10.6)
[2019-04-09 12:21] LABS: INR 2.3 (<1.2); Partial Thromboplastin Time 25.4 sec (22.0-30.0); Prothrombin Time 22.1 sec (9.0-12.0)
[2019-04-09 12:28] LABS: Calcium 9.3 mg/dL (8.4-10.2)
--- NOTE | 2019-04-09 12:41 | XR ---
EXAMINATION TYPE: XR elbow complete RT , 3 VIEWS DATE OF EXAM ORDERED: 04/09/2019 HISTORY: fall. COMPARISON: None. FINDINGS: No fracture, dislocation or other osseous lesion is seen. IMPRESSION: NO ACUTE OSSEOUS LESION.
--- NOTE | 2019-04-09 12:41 | XR ---
EXAMINATION TYPE: XR pelvis AP view , ONE VIEW DATE OF EXAM ORDERED: 04/09/2019 HISTORY: fall. COMPARISON: None. FINDINGS: Osseous structures about the pelvis are unremarkable. No fracture or dislocation is seen. There are degenerative changes in both hips. There are multiple phleboliths within the pelvis. IMPRESSION: NO ACUTE OSSEOUS LESION.
--- NOTE | 2019-04-09 12:56 | CT ---
EXAMINATION TYPE: CT brain cspine wo con DATE OF EXAM: 04/09/2019 COMPARISON: NONE HISTORY: Fall, open wound to nose CT DLP: 1065.5 (brain,cervical and facial) mGycm Automated exposure control for dose reduction was used. TECHNIQUE: CT scan of the head and cervical spine are performed without contrast. FINDINGS: BRAIN: There is mild volume loss in keeping with patient's age. Central structures are midline. There is no evidence hydrocephalus. No acute focal lesion, mass effec t or midline shift is seen. I do not see evidence of intracranial blood. Visualized portions of the paranasal sinuses and mastoids are clear. The bony calvarium is intact. IMPRESSION: NO ACUTE INTRACRANIAL ABNORMALITY. CERVICAL SPINE: There is mild pleural thickening within the chest. Lungs otherwise clear. Prevertebral soft tissues are normal. There is been a previous ACDF extending from C4 to C6. Alignment is normal. Atlantoaxial axial relati onships are normal. There is uncovertebral joint disease at the levels of the fusion and also at C6-7 . There is an incomplete arch of C1, a normal variant. No fractures are seen. No protrusions are seen . IMPRESSION: 1. NO ACUTE OSSEOUS LESION. 2. INCOMPLETE ARCH OF C1, A NORMAL VARIANT. 3. POSTSURGICAL CHANGE.
--- NOTE | 2019-04-09 12:59 | CT ---
EXAMINATION TYPE: CT facial bones wo con DATE OF EXAM: 04/09/2019 COMPARISON: None. HISTORY: Fall, open wound to nose CT DLP: 1065.5 (brain,cervical and facial) mGycm Automated exposure control for dose reduction was used. TECHNIQUE: CT scan of the sinuses is performed without contrast, axial images are obtained, coronal r eformatted images are also reviewed. FINDINGS: Soft tissues are unremarkable. Both zygomatic arches are intact. The pterygoid plates are intact. The orbital serrano in the serrano of the maxillary sinuses are intact. No nasal fracture is seen. The orbits are unremarkable. IMPRESSION: NORMAL CT SCAN OF THE FACIAL BONES.
--- NOTE | 2019-04-09 13:02 | XR ---
EXAMINATION TYPE: XR chest 1V portable DATE OF EXAM: 04/09/2019 HISTORY: fall. REFERENCE: Previous study dated 02/17/2013. FINDINGS: There is been a previous ACDF of the lower cervical spine. Lung volumes are prominent. Heart size upper limits of normal. Lungs are clear. IMPRESSION: PLEASE CORRELATE FOR COPD.
[2019-04-09] MEDS ORDERED: DIPH,PERTUS(ACELL)TETVAC-LF 0.5 ML VIAL IM ONE (13:13)
[2019-04-09 13:59] VITALS: BP 141/70; PULSE 80
== END 2019-04-09 13:57 | disposition home or self-care (01) ==
LOC: EC 11:30
DX: S00.93XA Contusion of unspecified part of head, initial encounter (principal); S50.01XA Contusion of right elbow, initial encounter; Z23 Encounter for immunization; I48.91 Unspecified atrial fibrillation; Z79.01 Long term (current) use of anticoagulants; Z79.899 Other long term (current) drug therapy; Z88.8 Allergy status to other drugs, medicaments and biological substances; W01.0XXA Fall on same level from slipping, tripping and stumbling without subsequent striking against object, initial encounter; Y92.480 Sidewalk as the place of occurrence of the external cause
CPT/HCPCS: 36415; 70450; 70486; 71045; 72125; 72170; 80048; 85025; 85610; 85730; 90471; 90715; 93005; 99284

== ENCOUNTER → 2019-12-13 | Outpatient (CLI) | payer MEDICARE ==
--- NOTE | 2019-12-13 12:05 | US ---
EXAMINATION TYPE: US kidneys/renal and bladder DATE OF EXAM: 12/13/2019 COMPARISON: NONE CLINICAL HISTORY: 79-year-old female N39.41 Urge incontinence. Patient states always having the urge to urinate TECHNIQUE: Multiple sonographic images of the kidneys and bladder are obtained. FINDINGS: EXAM MEASUREMENTS: Right Kidney: 10.4 x 4.3 x 4.7 cm Left Kidney: 10.7 x 4.3 x 5.9 cm Post Void Residual Volume: 31.7 mL Right Kidney: There is mild pelviectasis or extrarenal pelvis. No calyceal dilatation to suggest hydr onephrosis. Echogenic 7 mm focus of the midpole. Left Kidney: No hydronephrosis. Bladder: Partial distention limits evaluation. There may be mild wall thickening. Bilateral Jets seen Normal Post Void Residual: yes (normal <50 mL) IMPRESSION: 1. No hydronephrosis. Suspect an extrarenal pelvis on the right. 2. Suggestion of a 7 mm nonobstructing right midpole renal calculus. 3. Increased postvoid bladder volume of 32 mL. However, this still falls within acceptable limits (<5 0 mL). 4. Partial distention of the bladder limits its evaluation. There may be mild wall thickening. Correl ate to exclude cystitis.
== END | disposition home or self-care (01) ==
LOC: RADUSWWP 10:52
PROVIDERS: ATTEND Family Medicine
DX: N32.89 Other specified disorders of bladder (principal); R33.9 Retention of urine, unspecified
CPT/HCPCS: 76770

== ENCOUNTER → 2020-07-24 | Outpatient (CLI) | payer MEDICARE ==
--- NOTE | 2020-07-24 11:29 | BD ---
EXAMINATION TYPE: Axial Bone Density DATE OF EXAM: 07/24/2020 COMPARISON: NONE CLINICAL HISTORY: Postmenopausal female Height: 65 Weight: 128.0 FRAX RISK QUESTIONS: Alcohol (3 or more units per day): no Family History (Parent hip fracture): no Glucocorticoids (More than 3mos): yes (Ex: prednisone History of Fracture in Adulthood: yes Secondary Osteoporosis: 1. Type 1 Diabetes: no 2. Hyperthyroidism: no 3. Menopause before 45: no 4. Malnutrition: no 5. Chronic liver disease: no Rheumatoid Arthritis: no Current Tobacco Use: no RISK FACTORS HISTORY OF: Family History of Osteoporosis: no Active: yes Diet low in dairy products/other sources of calcium: yes Postmenopausal woman: age 50 Lost more than 2 inches in height since high school: no MEDICATIONS: sugar pill, heart meds x2, bladder meds Prednisone or other steroids: yes How Lon years Additional History: EXAM MEASUREMENTS: Bone mineral densitometry was performed using the [employer] System. Bone mineral density as measured about the Lumbar spine is: ----- L1-L4(G/cm2): 1.326 T Score Values are as follows: ----- L2: 0.3 ----- L3: 1.9 ----- L4: 2.5 ----- L1-L4: 1.2 Bone mineral density : baseline Bone mineral density about the R hip (g/cm2): 0.859 Bone mineral density about the L hip (g/cm2): 0.811 T Score values are as follows: -----R Neck: -1.3 -----L Neck: -1.6 -----R Total: -1.4 -----L Total: -1.9 Bone mineral density : baseline IMPRESSION: Osteopenia (T Score between -2.5 and -1). There is slightly increased risk of fracture and the patient may be considered for treatment. Re-Screen 2-5 years. NOTE: T-SCORE=SD OF THE YOUNG ADULT MEAN.
--- NOTE | 2020-07-25 10:36 | MM ---
Reason for exam: screening (asymptomatic). Last mammogram was performed 1 year and 11 months ago. History: Patient is postmenopausal and history of other cancer. Physical Findings: A clinical breast exam by your physician is recommended on an annual basis and results should be correlated with mammographic findings. MG 3D Screening Mammo W/Cad Bilateral CC and MLO view(s) were taken. Prior study comparison: September 07, 2018, bilateral MG 3d screening mammo w/cad. May 16, 2015, mammogram. There are scattered fibroglandular densities. No significant changes when compared with prior studies. ASSESSMENT: Benign, BI-RAD 2 RECOMMENDATION: Routine screening mammogram of both breasts in 1 year.
== END | disposition home or self-care (01) ==
LOC: RADMAMWWP 09:18
PROVIDERS: ATTEND Family Medicine
DX: Z12.31 Encounter for screening mammogram for malignant neoplasm of breast (principal); Z13.820 Encounter for screening for osteoporosis; M85.89 Other specified disorders of bone density and structure, multiple sites; Z78.0 Asymptomatic menopausal state
CPT/HCPCS: 77063; 77067; 77080

== ENCOUNTER → 2021-09-09 | Outpatient (CLI) | payer MEDICARE ==
--- NOTE | 2021-09-09 11:15 | FL ---
ESOPHOGRAM. HISTORY: Dysphagia Esophagram was performed per the air contrast technique. The patient swallowed barium and effervesce nt crystals without difficulty or delay. Esophageal peristalsis and motility appear to be within normal limits. There is no evidence for filling defect, mass or diverticulum. No hiatal hernia seen. Subsequently single contrast cervical esophagram was performed which fails demonstrate evidence for a spiration penetration or mass. Fixation plate from cervical fusion is mildly impress upon the posteri or esophagus from C4 through C6. IMPRESSION: Fixation plate from cervical fusion is mildly impress upon the posterior esophagus from C 4 through C6. Otherwise unremarkable study.
== END | disposition home or self-care (01) ==
LOC: RADUSWWP 10:10
PROVIDERS: ATTEND Otolaryngology
DX: M43.22 Fusion of spine, cervical region (principal)
CPT/HCPCS: 74220

== ENCOUNTER → 2021-10-04 | Outpatient (CLI) | payer MEDICARE ==
--- NOTE | 2021-10-07 08:05 | MM ---
Reason for Exam: Screening (asymptomatic). Last mammogram was performed 1 year(s) and 2 month(s) ago. Patient History: Menarche at age 12. First Full-Term at age 21. Left ovary removed at age 52. Right ovary removed at age 52. Hysterectomy at age 52. Postmenopausal. Patient has history of breast feeding. Other cancer. Risk Values: Radha 5 year model risk: 1.4%. NCI Lifetime model risk: 2.1%. Prior Study Comparison: 05/16/2015 Screening Mammogram, Unknown. 09/07/2018 Bilateral Screening Mammogram, [facility]. 07/24/2020 Bilateral Screening Mammogram, [facility]. Tissue Density: There are scattered fibroglandular densities. Findings: Analyzed By CAD. There is no suspicious group of microcalcifications or new suspicious mass in either breast. No significant change from prior exams. Overall Assessment: Benign, BI-RAD 2 Management: Screening Mammogram of both breasts in 1 year. A clinical breast exam by your physician is recommended on an annual basis and results should be correlated with mammographic findings. Electronically signed and approved by: Umang Chris D.O.
== END | disposition home or self-care (01) ==
LOC: RADMAMWWP 09:49
PROVIDERS: ATTEND Family Medicine
DX: Z12.31 Encounter for screening mammogram for malignant neoplasm of breast (principal); Z85.3 Personal history of malignant neoplasm of breast; Z78.0 Asymptomatic menopausal state
CPT/HCPCS: 77063; 77067

== ENCOUNTER → 2022-03-26 | Outpatient (CLI) | payer MEDICARE ==
--- NOTE | 2022-03-26 14:49 | US ---
EXAMINATION TYPE: US kidneys/renal and bladder DATE OF EXAM: 03/26/2022 COMPARISON: NONE CLINICAL HISTORY: N20.0 CALCULUS OF KIDNEY. Left lower abdomen and lower back pain EXAM MEASUREMENTS: Right Kidney: 10.6 x 4.4 x 4.7 cm Left Kidney: 10.4 x 5.1 x 5.0 cm Right Kidney: Mid pole calculus 9mm (seen on prior) Left Kidney: wnl Bladder: wnl Bilateral Jets seen: Left jet visualized There is no evidence for hydronephrosis at this point in time. No masses are identified. The urina ry bladder is anechoic. IMPRESSION: Nonobstructing calculus.
== END | disposition home or self-care (01) ==
LOC: RADUSWWP 14:10
PROVIDERS: ATTEND Family Medicine
DX: N20.0 Calculus of kidney (principal)
CPT/HCPCS: 76770

== ENCOUNTER → 2022-10-06 | Outpatient (CLI) | payer MEDICARE ==
--- NOTE | 2022-10-06 16:12 | BD ---
EXAMINATION TYPE: Axial Bone Density DATE OF EXAM: 10/06/2022 CLINICAL HISTORY: 82 years old Female. ICD-10 CODE: Z78.0 ASYMPTOMATIC MENOPAUSAL Height: 65 Weight: 120.0 FRAX RISK QUESTIONS: Alcohol (3 or more units per day): no Family History (Parent hip fracture): no Glucocorticoids (More than 3mos): yes (Ex: prednisone, prednisolone, methylprednisolone, dexamethasone, and hydrocortisone). History of Fracture in Adulthood: yes Secondary Osteoporosis: 1. Type 1 Diabetes: no 2. Hyperthyroidism: no 3. Menopause before 45: no 4. Malnutrition: no 5. Chronic liver disease: no Rheumatoid Arthritis: no Current Tobacco Use: no RISK FACTORS HISTORY OF: Surgery to Spine/Hip(right/left)/Wrist (right/left): no Family History of Osteoporosis: no Active: yes Postmenopausal woman: yes MEDICATIONS: Prednisone or other steroids: yes How Long: long time Additional History: EXAM MEASUREMENTS: Bone mineral densitometry was performed using the [employer] System. Bone mineral density as measured about the Lumbar spine is: ----- L1-L4(G/cm2): 1.329 T Score Values are as follows: ----- L1: -0.2 ----- L2: 1.0 ----- L3: 2.1 ----- L4: 1.9 ----- L1-L4: 1.2 Z Score Values are as follows: ----- L1: 2.0 ----- L2: 3.2 ----- L3: 4.3 ----- L4: 4.2 ----- L1-L4: 3.5 Bone mineral density has: increased 0.2 % since study of: 07.24.2020 Bone mineral density about the R hip (g/cm2): 0.851 Bone mineral density about the L hip (g/cm2): 0.757 T Score values are as follows: -----R Neck: -1.3 -----L Neck: -1.8 -----R Total: -1.2 -----L Total: -2.0 Z Score values are as follows: -----R Neck: 1.2 -----L Neck: 0.7 -----R Total: 1.1 -----L Total: 0.4 Bone mineral density has: stayed the same % since study of: 6.1.2020 FRAX%s: The graph provided illustrates a 25.5% chance for a major osteoporotic fx and a 8.2% chance f or the hips probability for fx in 10 years time. IMPRESSION: Osteopenia (T Score between -2.5 and -1). There is slightly increased risk of fracture and the patient may be considered for treatment. Re-Screen 2-5 years. NOTE: T-SCORE=SD OF THE YOUNG ADULT MEAN.
--- NOTE | 2022-10-07 08:33 | MM ---
Reason for Exam: Screening (asymptomatic). Last screening mammogram was performed 12 month(s) ago. Patient History: Menarche at age 12. First Full-Term at age 21. Left ovary removed at age 52. Right ovary removed at age 52. Hysterectomy at age 52. Postmenopausal. Patient has history of breast feeding. Other cancer. Risk Values: Radha 5 year model risk: 1.4%. NCI Lifetime model risk: 1.9%. Prior Study Comparison: 09/07/2018 Bilateral Screening Mammogram, [facility]. 07/24/2020 Bilateral Screening Mammogram, [facility]. 10/04/2021 Bilateral MG 3D screening mammo w/cad, [facility]. Tissue Density: There are scattered fibroglandular densities. Findings: Analyzed By CAD. There is no suspicious group of microcalcifications or new suspicious mass in either breast. Overall Assessment: Negative, BI-RAD 1 Management: Screening Mammogram of both breasts in [address] [facility] will attempt to contact patient to return for supplemental views and ultrasound if indicated. Patient should continue monthly self-breast exams. A clinical breast exam by your physician is recommended on an annual basis. This exam should not preclude additional follow-up of suspicious palpable abnormalities. Note on Radha scores and lifetime risk: 1. A Radha score greater than 3% is considered moderate risk. If this is the case, consider specialist referral to assess eligibility for a risk reducing agent. 2. If overall lifetime risk for the development of breast cancer is 20% or higher, the patient may qualify for future screening with alternating mammogram and breast MRI. Electronically signed and approved by: Logan Peterson DO
== END | disposition home or self-care (01) ==
LOC: RADBDWWP 15:33
PROVIDERS: ATTEND Family Medicine
DX: Z12.31 Encounter for screening mammogram for malignant neoplasm of breast (principal); M85.89 Other specified disorders of bone density and structure, multiple sites; Z78.0 Asymptomatic menopausal state
CPT/HCPCS: 77063; 77067; 77080

== ENCOUNTER 2023-05-30 11:10 | Emergency (ER) | payer MEDICARE ==
--- NOTE | 2023-05-30 11:17 | ED ---
Female Urogenital HPI - General Chief complaint: Urogenital Stated complaint: blood in urine Time Seen by Provider: 05/30/23 11:15 Source: patient, RN notes reviewed Mode of arrival: ambulatory Limitations: no limitations - History of Present Illness Initial comments: 83-year-old female with a history of A-fib on Xarelto presents to the with chief complaint of hematuria over the past day. Patient states that she noticed blood in her urine yesterday afternoon described as almost "peeing out blood ". Patient has a history of nephrolithiasis. She denies flank pain, suprapubic tenderness, nausea, fevers. She endorses increase in frequency, however is of bladder control medication. Additionally, patient notes that she has been experiencing dyspnea on exertion and angina over the past few months. She states that she feels worsening shortness of breath with activity such as going up stairs or taking walks with a tightness in her chest that is alleviated with rest. Denies orthopnea, history of CHF, or LE edema. States that she follows with cardiology and she has had stress testing and echo done within the past 1 to 2 years with no acute findings. Patient denies history of DE or CVA, no history of DVT or PE. - Related Data Home Medications Medication Instructions Recorded Confirmed Flecainide Acetate [Tambocor] 100 mg PO Q12H 09/03/16 03/04/17 Multivitamin [Multivitamins Adult 1 tab PO DAILY 09/03/16 02/27/17 Gummies] Grandview-3 Fatty Acids [[place]-3] 1,000 mg PO DAILY 09/03/16 02/27/17 Vitamin B Complex 1 cap PO DAILY 09/03/16 02/27/17 Warfarin [Coumadin] 5 mg PO SUMOTUWETHSA 09/03/16 03/04/17 dilTIAZem HCL [dilTIAZem HCL 24Hr 180 mg PO QAM 10/07/16 02/27/17 ER] Warfarin [Coumadin] 2.5 mg PO FR 02/14/17 03/04/17 Previous Rx's Medication Instructions Recorded Hydrocodone/Acetaminophen [[place] 1 tab PO Q6HR PRN #24 tab 02/14/17 5-325] Ondansetron [Zofran ODT] 4 mg PO Q8HR PRN #15 tab 02/14/17 Docusate [Colace] 100 mg PO BID #60 capsule 03/05/17 HYDROcodone/APAP 7.5-325MG [[place] 1 - 2 tab PO Q6HR PRN #60 tab 03/05/17 7.5-325] Acetaminophen [Acetaminophen 8 hr] 650 mg PO Q8H #15 tab 05/30/23 Sulfamethox-Tmp 800-160Mg [Bactrim 1 each PO Q12HR #24 tab 05/30/23 Ds] Allergies Allergy/AdvReac Type Severity Reaction Status Date / Time brompheniramine AdvReac Extreme Verified 05/30/23 11:15 [From [place] sleepiness (brompheniramine-PPA)] phenylpropanolamine AdvReac Extreme Verified 05/30/23 11:15 [From [place] sleepiness (brompheniramine-PPA)] Review of Systems ROS Statement: Those systems with pertinent positive or pertinent negative responses have been documented in the HPI. ROS Other: All systems not noted in ROS Statement are negative. Past Medical History Past Medical History: Atrial Fibrillation History of Any Multi-Drug Resistant Organisms: None Reported Past Surgical History: Appendectomy, Back Surgery, Hysterectomy, Orthopedic Surgery, Tonsillectomy Additional Past Surgical History / Comment(s): CERVICAL SURGERY. Trigger finger, bowel repair. LITHOTRIPSY. RIGHT EYE CATARACT REMOVAL. Past Anesthesia/Blood Transfusion Reactions: Motion Sickness Past Psychological History: No Psychological Hx Reported Smoking Status: Never smoker Past Alcohol Use History: Rare Past Drug Use History: None Reported - Past Family History Father Family Medical History: Cancer General Exam Limitations: no limitations General appearance: alert, in no apparent distress Head exam: Present: atraumatic, normocephalic, normal inspection Eye exam: Present: normal appearance, PERRL, EOMI. Absent: scleral icterus, conjunctival injection, periorbital swelling ENT exam: Present: normal exam, mucous membranes moist Neck exam: Present: normal inspection. Absent: tenderness, meningismus, lymphadenopathy Respiratory exam: Present: normal lung sounds bilaterally. Absent: respiratory distress, wheezes, rales, rhonchi, stridor Cardiovascular Exam: Present: regular rate, normal rhythm, normal heart sounds. Absent: systolic murmur, diastolic murmur, rubs, gallop, clicks GI/Abdominal exam: Present: soft, normal bowel sounds. Absent: distended, tenderness, guarding, rebound, rigid Extremities exam: Present: normal inspection, full ROM, normal capillary refill. Absent: tenderness, pedal edema, joint swelling, calf tenderness Back exam: Present: normal inspection Neurological exam: Present: alert, oriented X3, CN II-XII intact Psychiatric exam: Present: normal affect, normal mood Skin exam: Present: warm, dry, intact, normal color. Absent: rash Course Vital Signs 05/30/23 05/30/23 05/30/23 11:12 13:08 13:46 Temperature 99.4 F 8.1 F L Pulse Rate 77 72 67 Respiratory 18 18 18 Rate Blood Pressure 136/70 158/80 154/82 O2 Sat by Pulse 98 97 97 Oximetry Medical Decision Making - Medical Decision Making Was pt. sent in by a medical professional or institution (Dr. PA, SIDEROGRAPHER, urgent care, hospital, or residential...) When possible be specific @ -No Did you speak to anyone other than the patient for history (EMS, parent, family, police, friend...)? What history was obtained from this source @ -No Did you review nursing and triage notes (agree or disagree)? Why? @ -I reviewed and agree with nursing and triage notes Were old charts reviewed (outside hosp., previous admission, EMS record, old EKG, old radiological studies, urgent care reports/EKG's, residential records)? Report findings @ -No old charts were reviewed Differential Diagnosis (chest pain, altered mental status, abdominal pain women, abdominal pain men, vaginal bleeding, weakness, fever, dyspnea, syncope, headache, dizziness, GI bleed, back pain, seizure, CVA, palpatations, mental health, musculoskeletal)? @ -Differential Abdominal Pain Women: Appendicitis, Cholecystitis, diverticulosis, ischemic bowel, pancreatitis, hepatitis, UTI, gastroenteritis, AAA, incarcerated hernia, bowel obstruction, constipation, inflammatory bowel, hepatitis, peptic ulcer disease, splenic infarction, perforated viscus, vulvitis, ovarian torsion, PID, kidney stone, placenta abruption, this is not meant to be an all-inclusive list Differential Dyspnea: Coronary syndrome, arrhythmia, tamponade, asthma, COPD, pulmonary embolism, pneumonia, pneumothorax, pulmonary effusion, anaphylaxis, diabetic ketoacidosis, flailed chest, pulmonary contusion, diaphragmatic rupture, anemia, neuromuscular, this is not meant to be an all-inclusive list. EKG interpreted by me (3pts min.). @ -Completed at 1121 reading sinus rhythm, ventricular rate 70, OK interval 136, QTc 447. No acute signs of ischemia. Junctional rhythm not noted as described on interpretation. X-rays interpreted by me (1pt min.). @ - Chest x-ray no acute pulmonary process CT interpreted by me (1pt min.). @ -CT abdomen pelvis without contrast reveals a 9 mm calculus within the right renal pelvis without obstructive change. U/S interpreted by me (1pt. min.). @ -None done What testing was considered but not performed or refused? (CT, X-rays, U/S, labs)? Why? @ -None What meds were considered but not given or refused? Why? @ -None Did you discuss the management of the patient with other professionals (professionals i.e. , PA, SIDEROGRAPHER, lab, RT, psych nurse, case management social worker, shipping clerk/admin, teacher, water resources technical officer, registered nurse hh case manager)? Give summary @ -No Was smoking cessation discussed for >3mins.? @ -No Was critical care preformed (if so, how long)? @ -No Were there social determinants of health that impacted care today? How? (Homelessness, low income, unemployed, alcoholism, drug addiction, transportation, low edu. Level, literacy, decrease access to med. care, nursing home, rehab)? @ -No Was there de-escalation of care discussed even if they declined (Discuss DNR or withdrawal of care, Hospice)? DNR status @ -No What co-morbidities impacted this encounter? (DM, HTN, Smoking, COPD, CAD, Cancer, CVA, ARF, Chemo, Hep., AIDS, mental health diagnosis, sleep apnea, morbid obesity)? @ -A Fib Was patient admitted / discharged? Hospital course, mention meds given and route, prescriptions, significant lab abnormalities, going to OR and other pertinent info. @ -83 year old female with hematuria and SHEN with angina. Abdominal examination unremarkable for tenderness or flank pain. Cardiovascular and pulmonary examination unremarkable for signs of adventitious lung sounds or abnormal heart sounds. Laboratory results were remarkable for microcytic anemia which is comparable to previous laboratory results. Coagulation profile within normal limits, chemistry no acute electrolyte abnormalities, LFTs and BUN to creatinine ratio within normal limits. BNP and troponin nonelevated. Urinalysis revealed a bloody and brown appearance and color with greater than 182 red blood cells and urine chemistry was unable to be obtained due to color of urine. Due to patient's not having flank pain, abdominal pain, dysuria being symptom-free with 9 mm stone, patient will be discharged and sent for urology referral for further evaluation. Regarding patient's dyspnea. Rule out acute event such as ACS or arrhythmias, at this time patient feels comfortable following up with her utility aide as scheduled next week for further testing. I discussed this case with agreeable with plan and for discharge. Patient's statin as needed Tylenol for pain, in addition sent antibiotics to cover for cystitis due to being unable to definitively analyze if urinalysis reveals signs of infection. Undiagnosed new problem with uncertain prognosis? @ -No Drug Therapy requiring intensive monitoring for toxicity (Heparin, Nitro, Insulin, Cardizem)? @ -No Were any procedures done? @ -No Diagnosis/symptom? @ -Nephrolithiasis, acute cystitis Acute, or Chronic, or Acute on Chronic? @ -Acute Uncomplicated (without systemic symptoms) or Complicated (systemic symptoms)? @ -uncomplicated Side effects of treatment? @ -No Exacerbation, Progression, or Severe Exacerbation? @ -No Poses a threat to life or bodily function? How? (Chest pain, [place], DE, pneumonia, PE, COPD, DKA, ARF, appy, cholecystitis, CVA, Diverticulitis, Homicidal, Suicidal, threat to staff... and all critical care pts) @ -No - Lab Data Result diagrams: 05/30/23 11:56 05/30/23 11:56 Lab Results 05/30/23 05/30/23 05/30/23 Range/Units 11:56 11:56 11:56 WBC 5.7 (3.8-10.6) k/uL RBC 3.67 L (3.80-5.40) m/uL Hgb 10.1 L (11.4-16.0) gm/dL Hct 32.6 L (34.0-46.0) % MCV 88.8 (80.0-100.0) fL MCH 27.5 (25.0-35.0) pg MCHC 30.9 L (31.0-37.0) g/dL RDW 15.3 (11.5-15.5) % Plt Count 277 (150-450) k/uL MPV 7.3 Neutrophils % 73 % Lymphocytes % 15 % Monocytes % 7 % Eosinophils % 1 % Basophils % 1 % Neutrophils # 4.2 (1.3-7.7) k/uL Lymphocytes # 0.9 L (1.0-4.8) k/uL Monocytes # 0.4 (0-1.0) k/uL Eosinophils # 0.1 (0-0.7) k/uL Basophils # 0.0 (0-0.2) k/uL Hypochromasia Slight PT 11.4 (10.0-12.5) sec INR 1.0 (<1.2) APTT 24.5 (22.0-30.0) sec Sodium 142 (137-145) mmol/L Potassium 3.9 (3.5-5.1) mmol/L Chloride 110 H (98-107) mmol/L Carbon Dioxide 26 (22-30) mmol/L Anion Gap 6 mmol/L BUN 21 H (7-17) mg/dL Creatinine 0.65 (0.52-1.04) mg/dL Est GFR (CKD-EPI)AfAm >90 (>60 ml/min/1.73 sqM) Est GFR (CKD-EPI)NonAf 83 (>60 ml/min/1.73 sqM) Glucose 96 (74-99) mg/dL Calcium 9.0 (8.4-10.2) mg/dL Magnesium 2.0 (1.6-2.3) mg/dL Total Bilirubin 0.4 (0.2-1.3) mg/dL AST 31 (14-36) U/L ALT 18 (4-34) U/L Alkaline Phosphatase 58 (38-126) U/L Troponin I (0.000-0.034) ng/mL NT-Pro-B Natriuret Pep 384 pg/mL Total Protein 6.2 L (6.3-8.2) g/dL Albumin 3.6 (3.5-5.0) g/dL Urine Color Urine Appearance (Clear) Urine RBC (0-5) /hpf Urine WBC (0-5) /hpf Urine Bacteria (None) /hpf Urine Mucus (None) /hpf 05/30/23 05/30/23 Range/Units 11:56 11:56 WBC (3.8-10.6) k/uL RBC (3.80-5.40) m/uL Hgb (11.4-16.0) gm/dL Hct (34.0-46.0) % MCV (80.0-100.0) fL MCH (25.0-35.0) pg MCHC (31.0-37.0) g/dL RDW (11.5-15.5) % Plt Count (150-450) k/uL MPV Neutrophils % % Lymphocytes % % Monocytes % % Eosinophils % % Basophils % % Neutrophils # (1.3-7.7) k/uL Lymphocytes # (1.0-4.8) k/uL Monocytes # (0-1.0) k/uL Eosinophils # (0-0.7) k/uL Basophils # (0-0.2) k/uL Hypochromasia PT (10.0-12.5) sec INR (<1.2) APTT (22.0-30.0) sec Sodium (137-145) mmol/L Potassium (3.5-5.1) mmol/L Chloride (98-107) mmol/L Carbon Dioxide (22-30) mmol/L Anion Gap mmol/L BUN (7-17) mg/dL Creatinine (0.52-1.04) mg/dL Est GFR (CKD-EPI)AfAm (>60 ml/min/1.73 sqM) Est GFR (CKD-EPI)NonAf (>60 ml/min/1.73 sqM) Glucose (74-99) mg/dL Calcium (8.4-10.2) mg/dL Magnesium (1.6-2.3) mg/dL Total Bilirubin (0.2-1.3) mg/dL AST (14-36) U/L ALT (4-34) U/L Alkaline Phosphatase (38-126) U/L Troponin I <0.012 (0.000-0.034) ng/mL NT-Pro-B Natriuret Pep pg/mL Total Protein (6.3-8.2) g/dL Albumin (3.5-5.0) g/dL Urine Color Brown Urine Appearance Bloody H (Clear) Urine RBC >182 H (0-5) /hpf Urine WBC 59 H (0-5) /hpf Urine Bacteria Few H (None) /hpf Urine Mucus Few H (None) /hpf Disposition Clinical Impression: Nephrolithiasis, Hematuria, Cystitis Narrative: Please return to the Emergency Department if symptoms worsen or any other concerns. Follow-up with provided urology referral for further intervention of 9 mm calculus found in right renal pelvis. Follow-up with cardiology as scheduled next week for further intervention of dyspnea on exertion. Disposition: HOME SELF-CARE Condition: Good Instructions (If sedation given, give patient instructions): Kidney Stones (ED) Prescriptions: Acetaminophen [Acetaminophen 8 hr] 650 mg PO Q8H #15 tab Sulfamethox-Tmp 800-160Mg [Bactrim Ds] 1 each PO Q12HR #24 tab Is patient prescribed a controlled substance at d/c from ED?: No Referrals: Sharyn Damon MD [Primary Care Provider] - 1-2 days Ruben Doe MD [STAFF PHYSICIAN] - 1-2 days Time of Disposition: 13:30
[2023-05-30 11:31] VITALS: RESP 18
[2023-05-30 12:05] LABS: Basophils % (A) 1 %; Eosinophils # (A) 0.1 k/uL (0-0.7); Eosinophils % (A) 1 %; HCT 32.6 % (34.0-46.0); HGB 10.1 gm/dL (11.4-16.0); Hypochromasia Slight; Lymphocytes # (A) 0.9 k/uL (1.0-4.8); Lymphocytes % (A) 15 %; MCH 27.5 pg (25.0-35.0); MCHC 30.9 g/dL (31.0-37.0); MCV 88.8 fL (80.0-100.0); Mean Platelet Volume 7.3; Monocytes # (A) 0.4 k/uL (0-1.0); Monocytes % (A) 7 %; Neutrophils # (A) 4.2 k/uL (1.3-7.7); Neutrophils % (A) 73 %; Platelet Count 277 k/uL (150-450); RBC 3.67 m/uL (3.80-5.40); RDW 15.3 % (11.5-15.5); WBC 5.7 k/uL (3.8-10.6)
[2023-05-30 12:14] LABS: Bacteria,Urine Few /hpf; Mucus,Urine Few /hpf; RBC,Urine >182 /hpf (0-5); WBC,Urine 59 /hpf (0-5)
[2023-05-30 12:15] LABS: Appearance,Urine Bloody (Clear)
[2023-05-30 12:16] LABS: ALT 18 U/L (4-34); AST 31 U/L (14-36); African American GFR (CKD) >90 (>60 ml/min/1.73 sqM); Albumin 3.6 g/dL (3.5-5.0); Alkaline Phosphatase 58 U/L (38-126); Anion Gap 6 mmol/L; Blood Urea Nitrogen 21 mg/dL (7-17); Carbon Dioxide 26 mmol/L (22-30); Chloride 110 mmol/L (98-107); Color,Urine Brown; Glucose 96 mg/dL (74-99); Non-African American GFR(CKD) 83 (>60 ml/min/1.73 sqM); Sodium 142 mmol/L (137-145); Total Bilirubin 0.4 mg/dL (0.2-1.3); Total Protein 6.2 g/dL (6.3-8.2)
[2023-05-30 12:20] LABS: Partial Thromboplastin Time 24.5 sec (22.0-30.0); Prothrombin Time 11.4 sec (10.0-12.5)
[2023-05-30 12:23] LABS: NT-Pro-B-Type Natriuretic Pept 384 pg/mL
[2023-05-30 12:27] LABS: Potassium 3.9 mmol/L (3.5-5.1)
--- NOTE | 2023-05-30 12:50 | XR ---
EXAMINATION TYPE: XR chest 2V DATE OF EXAM: 05/30/2023 COMPARISON: NONE HISTORY: Shortness of breath TECHNIQUE: Frontal and lateral views of the chest are obtained. FINDINGS: Scattered senescent parenchymal changes noted. Hyperinflation compatible with COPD. No evidence for infiltrate. No evidence for atelectasis. Heart size is stable. Mediastinal structures are stable and grossly unremarkable. No evidence for hilar prominence. Degenerative changes dorsal spine. IMPRESSION: 1. No evidence for acute pulmonary disease.
--- NOTE | 2023-05-30 12:54 | CT ---
EXAMINATION TYPE: CT abdomen pelvis wo con DATE OF EXAM: 05/30/2023 COMPARISON: 02/12/2013 HISTORY: Hematuria CT DLP: 319.2 mGycm Examination of the solid and hollow viscera is limited given the lack of contrast. FINDINGS: LUNG BASES: No evidence for nodule. No evidence for infiltrate. There is evidence of cardiomegaly. LIVER/GB: The gallbladder is unremarkable. No space-occupying hepatic lesion. PANCREAS: No pancreatic mass identified. No inflammatory process seen. SPLEEN: No evidence for splenomegaly. No intrasplenic lesions seen. ADRENALS: No adrenal nodules identified. No evidence for thickening. KIDNEYS: There is a 9 mm calculus within the right renal pelvis not resulting in obstructive change. Mild fullness of the right renal pelvis. This calculus could result in intermittent obstructive nieto e however not currently. No additional calculi seen. No renal masses evident. BOWEL: Appendix has a normal appearance. No evidence of bowel obstruction. No inflammatory process. Lymph nodes: No evidence for adenopathy greater than 1 cm. Abdominal aorta: Atheromatous changes seen. No evidence for aneurysm. Genital organs: No significant abnormality. Other: No significant abnormality. IMPRESSION: There is a 9 mm calculus within the right renal pelvis not resulting in obstructive change. Mild full ness of the right renal pelvis. This calculus could result in intermittent obstructive change however not currently.
[2023-05-30 14:01] VITALS: BP 154/82; PULSE 67; TEMP 8.1
== END 2023-05-30 13:59 | disposition home or self-care (01) ==
LOC: EC 11:10
DX: N20.0 Calculus of kidney (principal); N30.91 Cystitis, unspecified with hematuria; I48.91 Unspecified atrial fibrillation; Z79.01 Long term (current) use of anticoagulants; Z88.8 Allergy status to other drugs, medicaments and biological substances
CPT/HCPCS: 36415; 71046; 74176; 80053; 81001; 83735; 83880; 84484; 85025; 85610; 85730; 93005; 99284

== ENCOUNTER 2023-06-09 06:34 | Day surgery (SDC) | payer MEDICARE ==
[~2023-06-09 06:34] MED LIST changes: +ALPRAZolam 0.25 MG TAB PO PRN; +ALPRAZolam 0.5 MG TAB PO PRN; -DEXAMETHASONE SOD PHOSPHATE 10 MG/ML 1 ML VIAL IV ONE; -LACTATED RINGERS 1,000 ML IV SCH; +NITROGLYCERIN SL TABS 0.4 MG TAB SUBLINGUAL PRN; -ONDANSETRON 4 MG/2 ML VIAL IVP ONE; -ceFAZolin IN SWFI 2 GM/20 ML SYRINGE IVP ONE
[2023-06-09] MEDS: SODIUM CHLORIDE 0.9% 1,000 ML in EMPTY BAG 1 BAG IV SCH (07:02)
[2023-06-09] MEDS: ASPIRIN 325 MG TAB PO STA (07:09)
[2023-06-09 07:17] VITALS: RESP 18; TEMP 97
[2023-06-09 07:19] LABS: Glucose,Whole Blood 108 mg/dL (70-110)
[2023-06-09] MEDS: MIDAZOLAM 2 MG/2 ML VIAL IVP ONE (07:33)
[2023-06-09] MEDS: LIDOCAINE 1% INJ 10MG/ML (20 ML MDV) SQ ONE (07:34)
[2023-06-09] MEDS: VERAPAMIL SYRINGE (5 MG/10 ML) INTRAARTER ONE (07:35)
[2023-06-09] MEDS: HEPARIN SODIUM 1,000 UN/ML (10ML VL) IVP ONE (07:37)
[2023-06-09] MEDS: IOPAMIDOL-370 100ML BTL INJ ONE (07:45)
[2023-06-09] MEDS ORDERED: SODIUM CHLORIDE 0.9% 1,000 ML IV SCH (08:00)
--- NOTE | 2023-06-09 08:38 | CC ---
CARDIAC CATHETERIZATION REPORT PROCEDURES PERFORMED: Left heart catheterization and coronary angiography. PERFORMED BY: Dr. Velma Garcia. ANESTHESIA: Moderate conscious sedation time was 13 minutes. Patient was administered Versed. Oxygen saturation, hemodynamics, and EKG were monitored closely. CLINICAL INFORMATION: Ms. Radha Amanda is 83-year-old lady with history of paroxysmal atrial fibrillation, hypertension, hyperlipidemia, type 2 diabetes, and mitral regurgitation of a moderate degree. When she is in atrial fib, she is quite symptomatic. She is currently on a combination of flecainide and beta raimundo, maintaining sinus rhythm. A recent stress test revealed no clear-cut reversible defect, but there was evidence of some decrease in ejection fraction on stress versus rest and with some amount of ischemic dilatation type picture. Therefore, she was advised cardiac cath in view of concern that she may have ischemia. PROCEDURE NOTE: Under local anesthesia and strict aseptic precautions, a 6-Sing[place]an introducer was placed in the right radial artery. Using a JL3.5 and JR4 catheters, I performed coronary angiography and the right catheter was used to check LV pressures. LV-gram was not performed. The sheath was taken out and TR band applied as per protocol with saturation of fingers of right hand of 93%. The patient tolerated procedure well without complications. She was sent to the room in a stable condition. CARDIAC CATHETERIZATION FINDINGS: The left ventricular end-diastolic pressure was 11 mmHg without any gradient across aortic valve. CORONARY ANGIOGRAPHY FINDINGS: Right Coronary Artery: Large dominant vessel, has minor irregularities of less than 30%, distally bifurcates into large PDA and PLV. No significant disease, only minor irregularities noted. Left Main Coronary Artery: Short, patent, disease-free vessel that bifurcates into LAD and circumflex. Left Anterior Descending Coronary Artery: Good caliber vessel, extends along the anterior wall, has minor irregularities of about 30%. It runs all the way towards the apex and curves over the apex to supply the inferoapical portion of left ventricle. No significant disease in LAD, minor irregularities of up to 30%. Left Posterior Circumflex Coronary Artery: Nondominant vessel, fair caliber, fair distribution, minor irregularities, no significant disease. FINAL IMPRESSION: This patient has a right-dominant system, normal filling pressures, no gradient, minor irregularities, no significant CAD. RECOMMENDATIONS: I am recommending continued medical therapy with risk factor modification. Findings were reviewed with the patient and son. She will be discharged later on today and I will see her on Thursday. DAVID / JOSE: [id number] / JAZMÍN
[2023-06-09 11:44] VITALS: BP 110/57; PULSE 66
--- NOTE | 2023-06-09 17:04 | CA ---
Transthoracic Echo Report Name: Radha Amanda Age: 83 Gender: F : 1940 Exam Date: 06/09/2023 08:51 Exam Location: [facility] Ht (in): 66 Wt (lb): 118 Ordering Physician: Don Garcia MD ([id number]) Attending/Referring Phys: Freight Car Inspector Nereida De Leon RDCS Procedure CPT: Indications: R/O LV FUNCTION AND MV PROLAPSE/REGURG Cardiac Hx: Technical Quality: Fair Contrast 1: Total Dose (mL): Contrast 2: Total Dose (mL): MEASUREMENTS (Male / Female) Normal Values 2D ECHO LV Diastolic Diameter PLAX 4.6 cm 4.2 - 5.9 / 3.9 - 5.3 cm LV Systolic Diameter PLAX 2.9 cm IVS Diastolic Thickness 1.3 cm 0.6 - 1.0 / 0.6 - 0.9 cm LVPW Diastolic Thickness 1.4 cm 0.6 - 1.0 / 0.6 - 0.9 cm LV Relative Wall Thickness 0.6 RV Internal Dim ED PLAX 3.4 cm LVOT Diameter 1.9 cm LV Diastolic Volume MOD BP 115.7 cm??? 67 - 155 / 56 - 104 cm??? LV Systolic Volume MOD BP 47.4 cm??? 22 - 58 / 19 - 49 cm??? LV Ejection Fraction MOD BP 59.0 % >= 55 % LV Cardiac Index MOD BP 2604.4 cm???/min???m??? LV Diastolic Volume MOD 4C 117.9 cm??? LV Systolic Volume MOD 4C 54.1 cm??? LV Ejection Fraction MOD 4C 54.1 % LV Cardiac Index MOD 4C 2435.7 cm???/min???m??? LV Diastolic Length 4C 7.9 cm LV Systolic Length 4C 6.5 cm LV Diastolic Volume MOD 2C 105.1 cm??? LV Systolic Volume MOD 2C 38.8 cm??? LV Ejection Fraction MOD 2C 63.1 % LV Cardiac Index MOD 2C 2531.3 cm???/min???m??? LV Diastolic Length 2C 8.6 cm LV Systolic Length 2C 7.1 cm LA Volume 90.7 cm??? 18 - 58 / 22 - 52 cm??? LA Volume Index 57.7 cm???/m??? 16 - 28 cm???/m??? M-MODE Aortic Root Diameter MM 3.3 cm LA Systolic Diameter MM 5.4 cm LA Ao Ratio MM 1.6 AV Cusp Separation MM 1.5 cm DOPPLER AV Peak Velocity 224.7 cm/s AV Peak Gradient 20.2 mmHg AV Mean Velocity 156.4 cm/s AV Mean Gradient 10.5 mmHg AV Velocity Time Integral 54.2 cm LVOT Peak Velocity 76.5 cm/s LVOT Peak Gradient 2.3 mmHg LVOT Velocity Time Integral 19.7 cm LVOT Stroke Volume 57.4 cm??? LVOT Stroke Volume Index 35.9 ml/m??? LVOT Cardiac Index 2192.6 cm???/min???m??? AV Area Cont Eq vti 1.1 cm??? AV Area Cont Eq pk 1.0 cm??? MV Area PHT 5.5 cm??? Mitral E Point Velocity 102.1 cm/s Mitral A Point Velocity 61.3 cm/s Mitral E to A Ratio 1.7 MV Deceleration Time 137.9 ms MV E' Velocity 8.5 cm/s Mitral E to MV E' Ratio 12.0 TR Peak Velocity 263.2 cm/s TR Peak Gradient 27.7 mmHg Right Ventricular Systolic Press 32.7 mmHg FINDINGS Left Ventricle Moderately increased left ventricular wall thickness. Mildly increased left ventricular diastolic volume. Mildly reduced global left ventricular systolic function. Left ventricular ejection fraction is estimated at 50-55 %. Grade 1 diastolic dysfunction. Right Ventricle Normal right ventricular size. Right ventricular systolic pressure within normal limits. Right Atrium Right atrial dilatation. Left Atrium Severely increased left atrial volume. Mildly increased left atrial area. Mitral Valve Structurally normal mitral valve. Mitral valve thickened. Mild mitral annular calcification. Moderate mitral regurgitation. Aortic Valve Trileaflet aortic valve. No aortic valve stenosis or regurgitation. Aortic valve sclerosis. Tricuspid Valve Structurally normal tricuspid valve. Mild tricuspid regurgitation. Pulmonic Valve Structurally normal pulmonic valve. Pericardium No pericardial effusion. Aorta Normal size aortic root and proximal ascending aorta. CONCLUSIONS Normal LV function Moderate mitral regurgitation Previewed by: Dr. Femi Dumont MD (Electronically Signed) Final Date: 09 June 2023 17:04
== END 2023-06-09 12:10 | disposition home or self-care (01) ==
LOC: CATHCVL 06:34
PROVIDERS: ATTEND Internal Medicine Interventional Cardiology
DX: I34.0 Nonrheumatic mitral (valve) insufficiency (principal); I48.0 Paroxysmal atrial fibrillation; I10 Essential (primary) hypertension; E78.5 Hyperlipidemia, unspecified; E11.9 Type 2 diabetes mellitus without complications; Z79.01 Long term (current) use of anticoagulants; Z79.84 Long term (current) use of oral hypoglycemic drugs; Z79.899 Other long term (current) drug therapy
CPT/HCPCS: 93306; 93458; J2250; J2001; J1644; Q9967

== ENCOUNTER → 2023-07-17 | Outpatient (CLI) | payer MEDICARE ==
[2023-07-17 14:59] LABS: Basophils # (A) 0.04 X 10*3/uL (0.00-0.10); Basophils % (A) 0.6 %; Eosinophils % (A) 1.6 %; HCT 34.6 % (37.2-46.3); HGB 10.6 g/dL (12.0-15.0); Lymphocytes # (A) 1.05 X 10*3/uL (0.90-5.00); Lymphocytes % (A) 16.3 %; MCH 29.1 pg (27.0-32.0); MCHC 30.6 g/dL (32.0-37.0); MCV 95.1 FL (80.0-97.0); Mean Platelet Volume 10.2 FL (9.5-12.2); Monocytes # (A) 0.68 X 10*3/uL (0.20-1.00); Monocytes % (A) 10.5 %; NRBC Per 100 WBC 0 X 10*3/uL (0.00-0.01); Neutrophils # (A) 4.55 X 10*3/uL (1.80-7.70); Neutrophils % (A) 70.5 %; Platelet Count 304 X 10*3/uL (140-440); RBC 3.64 X 10*6/uL (4.10-5.20); RDW 15.9 % (11.5-14.5); WBC 6.45 X 10*3/uL (4.50-10.00)
[2023-07-17 15:26] LABS: BUN/Creat Ratio 29.62 Ratio (12.00-20.00); Blood Urea Nitrogen 23.7 mg/dL (9.0-27.0); Calcium 9.7 mg/dL (8.7-10.3); Carbon Dioxide 31.1 mmol/L (21.6-31.8); Chloride 104 mmol/L (96-109); Glucose 112 mg/dL (70-110); Sodium 144 mmol/L (135-145)
== END | disposition home or self-care (01) ==
LOC: LABPAT 10:44
PROVIDERS: ATTEND Urology
DX: Z01.812 Encounter for preprocedural laboratory examination (principal); N20.0 Calculus of kidney
CPT/HCPCS: 36415; 80048; 85025

== ENCOUNTER → 2023-07-23 | Day surgery (SDC) | payer MEDICARE ==
--- NOTE | 2023-07-18 08:16 | P.GSHP ---
History of Present Illness H&P Date: 07/18/23 Chief Complaint: Low back pain The patient is an 83-year-old white female with a history of urolithiasis. She recently presented with gross hematuria, suprapubic pain, and lower back pain. CT scan showed mild right renal pelvic fullness with a 9 mm right renal pelvic calculus. The pros and cons of ESWL versus ureteroscopy with laser lithotripsy were reviewed in detail with the patient. She has elected to undergo the latter. - Constitutional Constitutional: Denies chills, Denies fever - Gastrointestinal Gastrointestinal: Denies nausea, Denies vomiting - Genitourinary (Female) Genitourinary: Reports hematuria, Reports kidney stones Past Medical History Past Medical History: Atrial Fibrillation History of Any Multi-Drug Resistant Organisms: None Reported Past Surgical History: Appendectomy, Back Surgery, Hysterectomy, Orthopedic Surgery, Tonsillectomy Additional Past Surgical History / Comment(s): CERVICAL SURGERY. Trigger finger, bowel repair. LITHOTRIPSY. RIGHT EYE CATARACT REMOVAL. Past Anesthesia/Blood Transfusion Reactions: Motion Sickness Past Psychological History: No Psychological Hx Reported Smoking Status: Never smoker Past Alcohol Use History: Rare Past Drug Use History: None Reported - Past Family History Father Family Medical History: Cancer Medications and Allergies Home Medications Medication Instructions Recorded Confirmed Type Flecainide Acetate [Tambocor] 100 mg PO Q12H 09/03/16 03/04/17 History Multivitamin [Multivitamins Adult 1 tab PO DAILY 09/03/16 02/27/17 History Gummies] Wimberley-3 Fatty Acids [Wimberley-3] 1,000 mg PO DAILY 09/03/16 02/27/17 History Vitamin B Complex 1 cap PO DAILY 09/03/16 02/27/17 History Warfarin [Coumadin] 5 mg PO SUMOTUWETHSA 09/03/16 03/04/17 History dilTIAZem HCL [dilTIAZem HCL 24Hr 180 mg PO QAM 10/07/16 02/27/17 History ER] Hydrocodone/Acetaminophen [[place] 1 tab PO Q6HR PRN #24 tab 02/14/17 03/04/17 Rx 5-325] Ondansetron [Zofran ODT] 4 mg PO Q8HR PRN #15 tab 02/14/17 03/04/17 Rx Warfarin [Coumadin] 2.5 mg PO FR 02/14/17 03/04/17 History Docusate [Colace] 100 mg PO BID #60 capsule 03/05/17 Rx HYDROcodone/APAP 7.5-325MG [[place] 1 - 2 tab PO Q6HR PRN #60 tab 03/05/17 Rx 7.5-325] Acetaminophen [Acetaminophen 8 hr] 650 mg PO Q8H #15 tab 05/30/23 Rx Sulfamethox-Tmp 800-160Mg [Bactrim 1 each PO Q12HR #24 tab 05/30/23 Rx Ds] Allergies Allergy/AdvReac Type Severity Reaction Status Date / Time brompheniramine AdvReac Extreme Verified 06/09/23 06:53 [From Dimetapp sleepiness (brompheniramine-PPA)] phenylpropanolamine AdvReac Extreme Verified 06/09/23 06:53 [From Dimetapp sleepiness (brompheniramine-PPA)] Surgical - Exam - General well developed, well nourished, no distress - Abdomen Abdomen: soft, non tender, no guarding, no rigid, no rebound - Psychiatric oriented to time, oriented to person, oriented to place, speech is normal, memory intact Results - Imaging CT scan - abdomen: report reviewed, image reviewed Assessment and Plan (1) Calculus of kidney Status: Acute Code(s): N20.0 - CALCULUS OF KIDNEY SNOMED Code(s): 02449576 Plan: Cystoscopy, right retrograde pyelogram, right ureteroscopy with Holmium laser lithotripsy and stone basketing, right ureteral stent insertion. The procedure has been reviewed in detail with the patient. She is aware of risks, which include anesthesia, bleeding, infection, ureteral injury, and inability to remove the calculus in its entirety.
[~2023-07-23] MED LIST changes: -ALPRAZolam 0.25 MG TAB PO PRN; -ALPRAZolam 0.5 MG TAB PO PRN; +HYDROmorphone 0.5 MG/0.5 ML SYRINGE IVP PRN; +LIDOCAINE 1% (10MG/ML) FOR IV START INTRADERMA PRN; +LIDOCAINE 1% INJ 10MG/ML (20 ML MDV) ONE; +MIDAZOLAM 2 MG/2 ML VIAL IV PRN; -NITROGLYCERIN SL TABS 0.4 MG TAB SUBLINGUAL PRN; +PHENYLEPHRINE 10 MG/ML VIAL ONE; +PROPOFOL 10 MG/ML 20 ML VIAL IV ONE; +ePHEDrine 50 MG/ML 1 ML VIAL ONE; +fentaNYL (PF) 50 MCG/ML 2 ML AMP IVP PRN; +fentaNYL (PF) 50 MCG/ML 2 ML AMP ONE
[2023-07-23 10:00] LABS: Glucose,Whole Blood 99 mg/dL (70-110)
[2023-07-23] MEDS: LACTATED RINGERS 1,000 ML IV SCH (10:04)
[2023-07-23] MEDS: DEXAMETHASONE SOD PHOSPHATE 4 MG/ML 1 ML VIAL IV ONE (10:05)
[2023-07-23] MEDS: ONDANSETRON 4 MG/2 ML VIAL IVP ONE (10:05)
[2023-07-23 10:33] VITALS: TEMP 97.6
--- NOTE | 2023-07-23 10:53 | XR ---
EXAMINATION TYPE: XR KUB DATE OF EXAM: 07/23/2023 Comparison: CT 05/30/2023 Clinical History: 83-year-old female N20.0 right renal calculus Findings: 1.3 cm right mid abdominal calcification. Numerous pelvic phleboliths. Scattered [id number] sto ol. Lung bases are clear. At least mild degenerative change in both hips. Some surgical material at t he cecum. Impression: 1.3 cm stone probably within the right renal collecting system.
[2023-07-23] MEDS: IOPAMIDOL-370 100ML BTL MISCELLANE ONE (11:00)
--- NOTE | 2023-07-23 11:51 | P.OP ---
Date of Procedure: 07/23/23 Preoperative Diagnosis: Right renal calculus Postoperative Diagnosis: Same Procedure(s) Performed: Cystoscopy, right retrograde pyelogram, right ureteroscopy with Holmium laser lithotripsy, right ureteral stent insertion Anesthesia: MANASA Surgeon: Loi Danielson Estimated Blood Loss (ml): 10 IV fluids (ml): 500 Pathology: none sent Condition: stable Disposition: PACU Indications for Procedure: The patient is an 83-year-old white female with a history of urolithiasis. She recently presented with gross hematuria, suprapubic pain, and lower back pain. CT scan showed mild right renal pelvic fullness with a 9 mm right renal pelvic calculus. The pros and cons of ESWL versus ureteroscopy with laser lithotripsy were reviewed in detail with the patient. She has elected to undergo the latter. Operative Findings: Right mid-pole calculus, fragmented completely. Description of Procedure: The patient was taken to the operating room and placed in the dorsolithotomy position, with legs supported in Hunter stirrups. The external genitalia was prepped and draped sterilely. The 30 lens was used to introduce the 21-Serbian Sargent cystoscopic sheath through the urethra and into the bladder under direct vi niles. The bladder was examined in its entirety. Both ureteral orifices were normal anatomic location and configuration, and clear urine effluxed from both. No tumors or foreign bodies were seen. Using a 10 Serbian cone-tip catheter, a right retrograde pyelogram was performed. Slight irregularity of the right proximal ureter was noted. The calculus was seen as a filling defect within a mid-pole infundibulum extending into the calyx. A 0.038 inch Glidewire was passed through the cystoscope. The right ureteral orifice was cannulated, and the Glidewire was advanced up to the renal pelvis. The cystoscope was removed, and an 11/13-Serbian ureteral access catheter was passed over the wire, up to the proximal ureter. The Sentilla flexible ureteroscope was then passed through the ureteral access catheter sheath and advanced under direct vision. Some tortuosity of the right proximal ureter was noted. The Glidewire was passed through the ureteroscope and up to the right renal pelvis, and the ureteroscope was advanced over the wire, into the renal pelvis. Each calyx was examined. The only calculus seen was the midpole calyx. The 272 micron Holmium laser probe was passed through the ureteroscope, and lithotripsy was performed. Initially, a dusting technique was performed, but this proved to be difficult due to angulation issues. Therefore, the calculus was fragmented, and a 1.9 Serbian 0 tip nitinol basket was used to reposition each fragment into the renal pelvis, where lithotripsy was continued until there were no residual calculus fragments exceeding 1 mm in size. The calculus was not particularly dense, likely composed of calcium oxalate dihydrate. Several clots were present within the renal pelvis. These were basketed and pulled into the ureteroscope to ensure that there were no calculi within the clots. No calculi were seen on fluoroscopy. Pullout ureteroscopy showed no ureteral abnormalities, and no evidence of ureteral trauma. The Glidewire was left in place, and was then backloaded into the cystoscope, which was passed into the bladder. A 24 cm, 4.8 Serbian double-J ureteral stent was placed over the wire. Proper stent positioning was verified fluoroscopically and endoscopically. The bladder was emptied and the cystoscope removed. The patient tolerated the procedure well and was taken to the recovery room in stable condition. [facility] [place] Report: Procedure Acuity: Elective Stone Size and Location: 1 cm, right mid-pole Ureteral Dilation: No Ureteral Access Sheath Used: Yes Stone Sent for Analysis: No All Stones/Fragments Were Removed with a Basket: No Complications: No Preoperative Antibiotics Given: Yes Stent Placed: Yes If Stent Placed, Was String Left Attached: No If Stent Placed, When is it to be Removed: 2 weeks Discharge Medications: Toradol, Solifenacin
[2023-07-23] MEDS: KETOROLAC 15 MG/ML 1 ML VIAL IVP ONE (12:21)
[2023-07-23 14:00] VITALS: BP 152/69; PULSE 64; RESP 16
--- NOTE | 2023-07-26 21:46 | FL ---
EXAMINATION TYPE: FL urography retrograde DATE OF EXAM: 07/23/2023 FLUOROSCOPY Fluoroscopy time of 32 seconds was used during cystoscopy and lithotripsy indication, urology procedu re. 3 image/s document/s the procedure. 1.8940 Gycm2 DAP
== END | disposition home or self-care (01) ==
LOC: OR 08:50
PROVIDERS: ATTEND Urology
DX: N20.0 Calculus of kidney (principal); I48.91 Unspecified atrial fibrillation; I10 Essential (primary) hypertension; M19.90 Unspecified osteoarthritis, unspecified site; F41.9 Anxiety disorder, unspecified; E11.9 Type 2 diabetes mellitus without complications; F10.90 Alcohol use, unspecified, uncomplicated; Z90.49 Acquired absence of other specified parts of digestive tract; Z90.710 Acquired absence of both cervix and uterus; Z79.01 Long term (current) use of anticoagulants; Z88.8 Allergy status to other drugs, medicaments and biological substances; Z85.828 Personal history of other malignant neoplasm of skin; Z79.899 Other long term (current) drug therapy; Z79.84 Long term (current) use of oral hypoglycemic drugs
CPT/HCPCS: 74420; 74018; 52356; C2625; C1758; C1769; J1100; J0690; J2405; J2001; J3010; J1885; J2704; Q9967; J2371

== ENCOUNTER 2023-07-25 04:51 | Emergency (ER) | payer MEDICARE ==
--- NOTE | 2023-07-25 05:51 | ED ---
Fall HPI - General Chief Complaint: Fall Stated Complaint: Fall Time Seen by Provider: 07/25/23 05:07 Source: patient, EMS Mode of arrival: EMS - History of Present Illness Initial Comments: Patient is an 83-year-old woman who fell in her bathtub striking head against wall. The patient denies loss consciousness. She denies neck pain. No other injuries in the fall. The patient states she is taking novel anticoagulant and concerned about possibility of bleeding. 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 Place Fall Occurred: home Loss of Consciousness: none Prolonged Down Time?: no Symptoms Prior to Fall: none Location: head - Related Data Home Medications Medication Instructions Recorded Confirmed Flecainide Acetate [Tambocor] 100 mg PO HS 09/03/16 07/22/23 Vitamin B Complex 1 cap PO DAILY 09/03/16 07/22/23 Escitalopram [Lexapro] 10 mg PO DAILY 07/22/23 07/22/23 Furosemide [Lasix] 20 mg PO DAILY 07/22/23 07/22/23 Iron (Unk) 1 tab PO DAILY 07/22/23 07/22/23 Metoprolol Tartrate 50 mg PO 0800,1200,2000 07/22/23 07/22/23 Mirabegron [Myrbetriq] 50 mg PO DAILY 07/22/23 07/22/23 Rivaroxaban [Xarelto] 20 mg PO DAILY 07/22/23 07/22/23 Solifenacin Succinate 5 mg PO HS 07/22/23 07/22/23 Vit D3(Unk) 1 tab PO DAILY 07/22/23 07/22/23 metFORMIN HCL ER [Glucophage XR] 500 mg PO BID 07/22/23 07/22/23 predniSONE 20 mg PO DAILY 07/22/23 07/22/23 sitaGLIPtin [Januvia] 100 mg PO DAILY 07/22/23 07/22/23 Previous Rx's Medication Instructions Recorded Ketorolac [Toradol] 10 mg PO Q6HR PRN #10 tab 07/23/23 Allergies Allergy/AdvReac Type Severity Reaction Status Date / Time brompheniramine AdvReac Extreme Verified 07/23/23 09:47 [From Dimetapp sleepiness (brompheniramine-PPA)] phenylpropanolamine AdvReac Extreme Verified 07/23/23 09:47 [From Dimetapp sleepiness (brompheniramine-PPA)] Review of Systems ROS Statement: Those systems with pertinent positive or pertinent negative responses have been documented in the HPI. ROS Other: All systems not noted in ROS Statement are negative. Constitutional: Denies: fever, chills, weakness Eyes: Denies: vision change Respiratory: Denies: cough, dyspnea Cardiovascular: Denies: chest pain, syncope Gastrointestinal: Denies: abdominal pain, nausea, vomiting Musculoskeletal: Denies: back pain Skin: Denies: rash Neurological: Reports: headache. Denies: weakness, numbness, confusion Hematological/Lymphatic: Reports: easy bleeding Past Medical History Past Medical History: Atrial Fibrillation History of Any Multi-Drug Resistant Organisms: None Reported Past Surgical History: Appendectomy, Back Surgery, Hysterectomy, Orthopedic Surgery, Tonsillectomy Additional Past Surgical History / Comment(s): CERVICAL SURGERY. Trigger f zain, bowel repair. LITHOTRIPSY. RIGHT EYE CATARACT REMOVAL. Past Anesthesia/Blood Transfusion Reactions: Motion Sickness Past Psychological History: No Psychological Hx Reported Smoking Status: Never smoker - Past Family History Father Family Medical History: Cancer General Exam Limitations: no limitations General appearance: alert, in no apparent distress Head exam: Present: atraumatic, normocephalic Eye exam: Present: PERRL, EOMI. Absent: scleral icterus, conjunctival injection ENT exam: Present: normal oropharynx Neck exam: Present: normal inspection, full ROM. Absent: tenderness Respiratory exam: Present: normal lung sounds bilaterally. Absent: respiratory distress, wheezes, rales, rhonchi, stridor, chest wall tenderness Cardiovascular Exam: Present: regular rate, normal rhythm, normal heart sounds. Absent: systolic murmur, diastolic murmur, rubs, gallop GI/Abdominal exam: Present: soft. Absent: distended, tenderness, guarding, rebound, rigid, mass Extremities exam: Present: normal inspection, normal capillary refill. Absent: pedal edema, calf tenderness Back exam: Present: normal inspection. Absent: vertebral tenderness Neurological exam: Present: alert, oriented X3, CN II-XII intact. Absent: motor sensory deficit Skin exam: Present: warm, dry, intact, normal color. Absent: rash Course Vital Signs 07/25/23 07/25/23 07/25/23 04:51 05:40 06:07 Temperature 99.8 F H 99.6 F Pulse Rate 104 H Respiratory 16 Rate Blood Pressure 141/77 O2 Sat by Pulse 91 L 96 Oximetry 07/25/23 07/25/23 07/25/23 06:58 07:40 08:59 Temperature Pulse Rate 106 H 101 H 101 H Respiratory 18 16 20 Rate Blood Pressure 126/88 138/82 136/80 O2 Sat by Pulse 97 99 97 Oximetry Medical Decision Making - Medical Decision Making This patient is an 83-year-old woman who arrives to have evaluation after falling and striking head against wall. The patient is taking anticoagulant medication and there is concern about the mechanism of injury given the blood thinner. The patient sent for CT scan which I interpreted as negative for acute skull fracture or acute intracranial hemorrhage. Was pt. sent in by a medical professional or institution (, [facility], [facility], urgent care, hospital, or jail...) When possible be specific @ -[No] Did you speak to anyone other than the patient for history (EMS, parent, family, police, friend...)? What history was obtained from this source @ -[No] Did you review nursing and triage notes (agree or disagree)? Why? @ -[I reviewed and agree with nursing and triage notes] Were old charts reviewed (outside hosp., previous admission, EMS record, old EKG, old radiological studies, urgent care reports/EKG's, jail records)? Report findings @ -[No old charts were reviewed] Differential Diagnosis (chest pain, altered mental status, abdominal pain women, abdominal pain men, vaginal bleeding, weakness, fever, dyspnea, syncope, headache, dizziness, GI bleed, back pain, seizure, CVA, palpatations, mental hea lth, musculoskeletal)? @ -[Differential Musculoskeletal Muscular strain, contusion, ligament sprain, fracture, arthritis, septic arthritis, bursitis, cellulitis, muscle spasm, nerve compression, DVT, arterial occlusion, herpes zoster, electrolyte abnormality, tumor.... This is not meant to be in all inclusive list EKG interpreted by me (3pts min.). @ -[As above] X-rays interpreted by me (1pt min.). @ -[None done] CT interpreted by me (1pt min.). @ -[I interpreted as above U/S interpreted by me (1pt. min.). @ -[None done] What testing was considered but not performed or refused? (CT, X-rays, U/S, labs)? Why? @ -[None] What meds were considered but not given or refused? Why? @ -[None] Did you discuss the management of the patient with other professionals (professionals i.e. Dr., PA, [facility], lab, RT, psych nurse, social services specialist, business lawyer, teacher, learning officer, employment case manager)? Give summary @ -[No] Was smoking cessation discussed for >3mins.? @ -[No] Was critical care preformed (if so, how long)? @ -[No] Were there social determinants of health that impacted care today? How? (Homelessness, low income, unemployed, alcoholism, drug addiction, transportation, low edu. Level, literacy, decrease access to med. care, fdc, rehab)? @ -[No] Was there de-escalation of care discussed even if they declined (Discuss DNR or withdrawal of care, Hospice)? DNR status @ -[No] What co-morbidities impacted this encounter? (DM, HTN, Smoking, COPD, CAD, Cancer, CVA, ARF, Chemo, Hep., AIDS, mental health diagnosis, sleep apnea, morbid obesity)? @ -[None] Was patient admitted / discharged? Hospital course, mention meds given and route, prescriptions, significant lab abnormalities, going to OR and other pertinent info. @ -[hospital course] Undiagnosed new problem with uncertain prognosis? @ -[No] Drug Therapy requiring intensive monitoring for toxicity (Heparin, Nitro, Insulin, Cardizem)? @ -[No] Were any procedures done? @ -[No] Diagnosis/symptom? @ -[Fall Acute closed head injury Acute, or Chronic, or Acute on Chronic? @ -Acute Uncomplicated (without systemic symptoms) or Complicated (systemic symptoms)? @ -[Uncomplicated Side effects of treatment? @ -[No] Exacerbation, Progression, or Severe Exacerbation? @ -[No] Poses a threat to life or bodily function? How? (Chest pain, [place], [place], pneumonia, PE, COPD, DKA, ARF, appy, cholecystitis, CVA, Diverticulitis, Homicidal, Suicidal, threat to staff... and all critical care pts) @ -[No] - EKG Data -: EKG Interpreted by Me EKG shows normal: axis (Left axis deviation), intervals (QRS duration 114 ms, mild intraventricular conduction delay. QTc 443 ms, normal), QRS complexes (Normal) Rate: normal (Rate 99 bpm) Interpretation: nonspecific ST-T wave changes, other (Rhythm appears to be atrial flutter) Disposition Clinical Impression: Fall, Head injury Disposition: HOME SELF-CARE Condition: Good Instructions (If sedation given, give patient instructions): Fall Prevention for Older Adults (ED), Head Injury (ED) Is patient prescribed a controlled substance at d/c from ED?: No Referrals: Sharyn Damon MD [Primary Care Provider] - 1-2 days
[2023-07-25 06:48] VITALS: TEMP 99.6
--- NOTE | 2023-07-25 07:02 | CT ---
EXAMINATION TYPE: CT brain wo con DATE OF EXAM: 07/25/2023 COMPARISON: 04/09/2019 HISTORY: Fall, hit front of head, denies LOC. On thinners. CT DLP: 1115.4 mGycm Automated exposure control for dose reduction was used. FINDINGS: The ventricles, basal cisterns and sulci over convexities are mildly prominent consistent with age-ap propriate atrophy. There is mild decreased density in the periventricular white matter consistent with chronic ischemic white matter demyelination. There is no mass effect or shift of the midline structures. There is no acute intra or extra-axial he morrhage. Posterior fossa is grossly normal. The intraorbital contents appear normal and symmetric. Visualized paranasal sinuses and mastoid air c ells are well aerated. The calvarium is intact. IMPRESSION:. 1. No acute bleed or mass effect. 2. No calvarial fracture. 3. Mild age appropriate atrophy. 4. No interval change compared to previous. IMPRESSION:
[2023-07-25 08:25] VITALS: PULSE 101
[2023-07-25 09:17] VITALS: BP 136/80; RESP 20
== END 2023-07-25 09:00 | disposition home or self-care (01) ==
LOC: EC 04:51
DX: S09.90XA Unspecified injury of head, initial encounter (principal); W22.01XA Walked into wall, initial encounter; Y93.E1 Activity, personal bathing and showering
CPT/HCPCS: 70450; 93005; 99284

== ENCOUNTER → 2023-09-10 | Outpatient (CLI) | payer MEDICARE ==
--- NOTE | 2023-09-10 13:43 | XR ---
EXAMINATION TYPE: XR KUB DATE OF EXAM: 09/10/2023 COMPARISON: 07/23/2023 HISTORY: Renal calcifications TECHNIQUE: AP abdomen FINDINGS: There is moderate fecal retention throughout the colon. Psoas margins are normal. No mass e ffect is evident. Previous 1.3 cm calcification over the right kidney is not identified. IMPRESSION: 1. Previous right renal calcification not identified. 2. Moderate fecal retention
--- NOTE | 2023-09-10 18:48 | US ---
EXAMINATION TYPE: US kidneys/renal and bladder DATE OF EXAM: 09/10/2023 COMPARISON: CT 2023, US 2022 CLINICAL INDICATION: Female, 83 years old with history of N20.0 CALCULUS OF KIDNEY; EXAM MEASUREMENTS: Right Kidney: 9.9 x 4.6 x 5.0 cm Left Kidney: 11.1 x 5.5 x 5.4 cm Right Kidney: No hydronephrosis or masses seen Left Kidney: No hydronephrosis or masses seen Bladder: wnl Bilateral Jets seen: No IMPRESSION: 1. No acute renal ultrasound abnormality
== END | disposition home or self-care (01) ==
LOC: RADUSWWP 10:31
PROVIDERS: ATTEND Urology
DX: N20.0 Calculus of kidney (principal); K59.00 Constipation, unspecified
CPT/HCPCS: 74018; 76770

== ENCOUNTER 2023-12-15 08:47 | Day surgery (SDC) | payer MEDICARE ==
[~2023-12-15 08:47] MED LIST changes: -HYDROmorphone 0.5 MG/0.5 ML SYRINGE IVP PRN; -LIDOCAINE 1% INJ 10MG/ML (20 ML MDV) ONE; -MIDAZOLAM 2 MG/2 ML VIAL IV PRN; +ONDANSETRON 4 MG/2 ML VIAL IVP PRN; -PHENYLEPHRINE 10 MG/ML VIAL ONE; -PROPOFOL 10 MG/ML 20 ML VIAL IV ONE; -ePHEDrine 50 MG/ML 1 ML VIAL ONE; -fentaNYL (PF) 50 MCG/ML 2 ML AMP IVP PRN; -fentaNYL (PF) 50 MCG/ML 2 ML AMP ONE
[2023-12-15 09:36] VITALS: RESP 16; TEMP 97.3
[2023-12-15] MEDS: LACTATED RINGERS 1,000 ML IV SCH (09:44)
[2023-12-15] MEDS: IV FLUID CONTINUATION 1,000 ML IV ONE (09:44)
[2023-12-15 09:49] LABS: Glucose,Whole Blood 111 mg/dL (70-110)
[2023-12-15] MEDS ORDERED: PROPOFOL 10 MG/ML 20 ML VIAL IV ONE (10:04)
--- NOTE | 2023-12-15 10:21 | P.PCN ---
Date of Procedure: 12/15/23 Procedure(s) Performed: BRIEF HISTORY: Patient is a 83-year-old, pleasant, white female scheduled for Upper endoscopy as a part evaluation of iron deficiency anemia.. Her last colonoscopy was in 2012 that was complicated with a perforation requiring emergency surgery. Hence patient declines to have a colonoscopy at this time. She has history of A-fib and has been Xarelto which is on hold for 2 days PROCEDURE PERFORMED: Esophagogastroduodenoscopy biopsy. PREOPERATIVE DIAGNOSIS: Iron deficiency anemia. IV sedation per anesthesia. PROCEDURE: After informed consent was obtained, the patient was brought into the endoscopy unit. IV sedation was administered by Anesthesia under continuous monitoring. Initially the Olympus GIF-140 video endoscope was inserted into the mouth. Esophagus intubated without any difficulty. It was gradually advanced into the stomach and duodenum and carefully examined. The bulb and the second part of the duodenum appeared normal. Biopsies were done from the duodenum to rule out celiac disease. The scope at this time was withdrawn to the stomach, adequately insufflated with air, and upon careful examination, mucosa of the antrum, diffuse gastritis and biopsies were done from this area. Mucosa of the body, cardia and the fundus appeared normal. No gastric polyps identified. The scope was then withdrawn into the esophagus. The GE junction was located at 39 cm from the incisors. The esophagus appeared normal. There were no erosions or ulcerations seen and the patient tolerated the procedure well. IMPRESSION: 1. Mild diffuse gastritis. 2. Multiple small gastric polyps. RECOMMENDATIONS: The findings of this examination were discussed with the zeina miller as well as her family. She was advised to follow with the biopsy results. Resume Xarelto today. Recommended CT colonoscopy to evaluate the colon because of iron deficiency anemia.
[2023-12-15 10:42] VITALS: BP 120/58; PULSE 70
== END 2023-12-15 11:15 | disposition home or self-care (01) ==
LOC: ORWHC2ENDO 08:47
PROVIDERS: ATTEND Internal Medicine Gastroenterology
CPT/HCPCS: 43239; 88305